=== PATIENT | male | born 1970 | race Two or more races ===

== ENCOUNTER 2024-05-20 22:56 | Inpatient (IN) | payer MEDICAID, SELFPAY ==
--- NOTE | 2024-05-20 22:58 | PD.EDAMS ---
Altered Mental Status RME/HPI General Chief Complaint: Altered Mental Status Stated Complaint: ALTERED Time Seen by Provider: 05/21/24 00:09 Limitations: no limitations RME / HPI RME / HPI narrative: Dr. Palacios's Main ED Evaluation: Unknown male BRYSON presents to the ED for a chief complaint of altered mental status. Per EMS, they were called after the patient passed out tonight at 2200 and has been drinking alcohol excessively. Full ROS is unobtainable due to the patient's AMS. Related Data Previous Rx's ?Medication ?Instructions ?Recorded metformin 500 mg tablet 500 mg PO BID #60 tabs 07/19/23 Allergies Allergy/AdvReac Type Severity Reaction Status Date / Time No Known Allergies Allergy Verified 05/21/24 00:46 Review of Systems Review of Systems ROS Unobtainable: unobtainable due to mental status ED Exam General Limitations: Present no limitations General appearance: Present alert and in no apparent distress Head Head exam: Present atraumatic Eye Eye exam: Present normal appearance, PERRL, EOMI and other (pupils are equal to 3-4mm) ENT ENT exam: Present normal oropharynx, mucous membranes moist and other (no facial trauma; is grinding his teeth; doesn't withdraw at the gag reflex) Neck Neck exam: Present normal inspection, full ROM and trachea midline Chest Chest inspection: Present normal inspection and symmetric chest wall rise Respiratory Respiratory exam: Present other (is snoring; diffuse rhonchi bilaterally); Absent stridor Cardiovascular Cardiovascular exam: Present regular rate, normal rhythm and normal heart sounds Abdominal Exam Abdominal exam: Present soft, distention and normal bowel sounds Extremities Exam Extremities exam: Present other (no signs of trauma); Absent pedal edema Neurological Exam Neurological exam: Present other (GCS is 3.) Skin Skin exam: Present warm, dry, intact and normal color Course Course Course Narrative: CXR is ordered for post intubation confirmation. 2327: Patient intubated. Quality Measures none Orders Category Date Time Status Admit to Inpatient Status Routine Admission 05/21/24 00:55 Active COVID-19 Screening Questionnaire NOW Care 05/21/24 01:02 Active Decision to Admit X1 Care 05/21/24 01:01 Active EKG (ED ONLY) *Do not use* NOW Care 05/20/24 23:09 Completed Reeder [Urinary Catheter] QS Care 05/20/24 23:03 Active Insert IV NOW Care 05/20/24 23:06 Active Intubation NOW Care 05/20/24 23:[address] cervical spine wo con Stat Exams 05/20/24 23:[address] head/brain wo con Stat Exams 05/20/24 23:47 Taken EKG (ED Only) Stat Exams 05/20/24 23:09 Ordered XR chest 1V post procedure Stat Exams 05/20/24 23:29 Completed ABG [Arterial Blood Gas] Stat Lab 05/20/24 23:10 Ordered Alcohol, Blood Medical Stat Lab 05/20/24 23:05 Completed Arterial Blood Gas Stat Lab 05/20/24 23:35 Completed Blood Culture (Lab) Stat Lab 05/20/24 23:06 Received CBC Stat Lab 05/20/24 23:05 Completed Comprehensive Metabolic Panel Stat Lab 05/20/24 23:05 Completed Drug Screen,Urine Stat Lab 05/20/24 23:09 Ordered Drug Screen,Urine Stat Lab 05/21/24 00:04 Ordered Lactate (Lactic Acid) Stat Lab 05/20/24 23:05 Results Procalcitonin Stat Lab 05/20/24 23:05 Completed Sputum Culture and Gram Stain Stat Lab 05/21/24 00:04 Ordered Urinalysis Stat Lab 05/21/24 00:41 Ordered Dextrose 5%-Water [D5w] 498 ml Med 05/20/24 23:45 Discontinued NALOXONE INJ (Syringe) [Narcan Inj (Syringe)] 2 mg IV 10 mls/hr Etomidate Inj [Amidate Inj] Med 05/20/24 23:04 Discontinued 20 mg IVP X1 ONE NALOXONE INJ (Syringe) [Narcan Inj (Syringe)] Med 05/20/24 22:58 Discontinued 2 mg .ROUTE .STK-MED ONE NALOXONE INJ (Syringe) [Narcan Inj (Syringe)] Med 05/20/24 23:10 Discontinued 2 mg IV X1 ONE Propofol 1,000 mg Ivpb [Diprivan Ivpb] Med 05/20/24 23:05 Discontinued 1,000 mg in 100 ml IV .STK-MED Propofol 1,000 mg Ivpb [Diprivan Ivpb] Med 05/20/24 23:07 Pending 1,000 mg in 100 ml IV 5 mcg/kg/min Propofol 1,000 mg Ivpb [Diprivan Ivpb] Med 05/20/24 23:30 Active 1,000 mg in 100 ml IV 5 mcg/kg/min Succinylcholine Inj [Anectine Inj] Med 05/20/24 23:05 Discontinued 100 mg IV X1 ONE Succinylcholine Inj [Anectine Inj] Med 05/20/24 23:35 Discontinued 100 mg IV X1 ONE levETIRAcetam INJ [Keppra Inj] Med 05/20/24 23:08 Discontinued 1,000 mg IVP X1 ONE O2 [Oxygen Delivery] PRN RT 05/20/24 23:33 Active Volume Ventilator Stat RT 05/20/24 Active Vital Signs Vital signs: Vital Signs Pulse Rate 103 H 05/20/24 23:16 Respiratory Rate 10 L 05/20/24 23:16 Blood Pressure 108/0 L 05/20/24 23:16 Pulse Oximetry (%) 95 05/20/24 23:16 Oxygen Delivery Method Ambu-Bag 05/20/24 23:16 Procedures -ED Intubation Time out performed: No sedative: Etomidate Mg Given: 20 paralytic: Succinylcholine Mg Given: 200 Laryngoscope: fiber optic video scope Assist Device Used: fiber optic device ET Tube Size: 7.5 ET Tube Uncuffed: No Tube Secured Depth (cm): 23 Tube Secured Location: teeth Tube Placement Confirmation: visualized tube passing through cords, equal breath sounds bilaterally, no breath sounds over epigastrium and confirmation by capnometry Patient Tolerated Procedure: well and no complications Altered Mental Status MDM Narrative MDM Narrative:: Differential diagnosis includes aspiration pneumonia, electrolyte abnormality, drug use, head trauma, metabolic encephalopathy, drug use, UTI, Patient presents with a GCS of 3. By history the patient was visually seen drinking significant amount of alcohol. No reported trauma. Patient satting well but has sonorous breathing's and? Doubt seizure activity however he is not protecting his airway and with low GCS, The patient is intubated. Chest x-ray is consistent with aspiration pneumonia and this is also visualized on CT scan. Patient data External records reviewed:: [facility] previous records (Unknown due to the patient being a Josh Hansen.) Clinical information provided by:: EMS Social determinants that could affect healthcare access:: none Patient has the following chronic illnesses:: DM How is presenting disease/condition affected by chronic disease/condition?: uneffected by Evaluation data The following diagnostics were reviewed and interpreted by me:: lab results, radiology exam(s) and EKG tracing(s) Lab and/or radiology exams considered but not ordered:: none Interpretation Summary: WBC count is elevated at 12.9, HnH is 17.6/49.7, Lactate is elevated at 4.7, Procalcitonin is normal, Glucose is elevated at 418, Anion Gap is normal, UDS is negative, Blood alcohol is elevated at 461.9, according to my interpretation. EKG done at 2314, NSR, rate of 87, normal intervals, normal axis, no ST elevations or depressions, QTc: 401, no STEMI, according to my interpretation. ----- [facility] Report Signed Patient: Cata WEINBERG Med. Record#: [id number] Birthdate: 06/12/1958 Age/Sex: 65 / M Location: [facility] Attending Dr: Ordering Physician: Yael Palacios MD Date of Service: 05/20/24 Procedure(s): XR chest 1V post procedure Accession Number(s): [id number] cc: Gordon Barnhart MD; Yael Palacios MD~ Examination: AP chest single view Technique one AP portable chest single view Exam date and time: May 20, 2024 11:39 PM Indications: Hypoxic respiratory failure postintubation today Findings: Tracheal tube tip 3.1 cm above viviana Reduced inspiratory effort Air distended stomach Orogastric tube in the stomach, the tip is below the level of the film Mild opacity in the left perihilar left upper lobe region, consider aspiration pneumonia Impression: Tracheal tube tip 3.1 cm above viviana Orogastric tube in the stomach Mild left upper lobe left perihilar opacity, consider aspiration pneumonia Dictated By: Gordon Barnhart MD Signed By: <Electronically signed by Gordon Barnhart MD in OV> 05/20/24 0514 ------ [facility] Preliminary Report Draft Patient: DERIC INMAN Med. Record#: [id number] Birthdate: 1970 Age/Sex: 53 / M Location: [facility] Attending Dr: Ordering Physician: Date of Service: Procedure(s): Accession Number(s): cc: ~ CT scan of the head without intravenous contrast (axial sections with sagittal and coronal reformats) May 21, 2024 0008 hours Clinical History: Mental status change. Comparison: None. Findings: There is no evidence of intracranial hemorrhage, mass effect or midline shift. There is mild volume loss. The calvarium is unremarkable. The mastoid air cells and the visualized paranasal sinuses are clear.Nasal and oral tubing is noted. Impression: No evidence of intracranial hemorrhage, mass effect or midline shift. Mild volume loss. Aspect score 10. Report Electronically Signed By: Nicholas Cochran 05/21/2024 12:41:18 AM [EST] --------- [facility] Preliminary Report Draft Patient: DERIC INMAN. Record#: [id number] Birthdate: 1970 Age/Sex: 53 / M Location: [facility] Attending Dr: Ordering Physician: Date of Service: Procedure(s): Accession Number(s): cc: ~ CT scan of the cervical spine without intravenous contrast (axial sections with sagittal and coronal reformats) May 21, 2024 0011 hours Clinical History: Mental status change. Comparison: None. Findings: There is no fracture or subluxation. Degenerative changes of the cervical spine. The prevertebral soft tissues are unremarkable. Endotracheal tube and esophageal tube noted. Partially imaged right lung consolidation. Impression: No evidence of fracture or subluxation. Partially imaged right lung consolidation. Consider further evaluation of the lungs to assess for pneumonia. Report Electronically Signed By: Nicholas Cochran 05/21/2024 12:42:10 AM [EST] Medications / Prescriptions Medications or Prescriptions considered but not ordered:: none Medication administrations:: Medication Administration History Propofol (Diprivan Ivpb) 1,000 mg in 100 mls @ 0 mls/hr IV .Q0M PRN; Protocol PRN Reason: PER PROTOCOL Stop: 06/19/24 23:06 Propofol (Diprivan Ivpb) 1,000 mg in 100 mls @ 2.177 mls/hr IV .Q24H PRN; Protocol PRN Reason: PER PROTOCOL Stop: 06/19/24 23:29 Last Titration: 05/20/24 23:50 Dose: 25 mcg/kg/min, 10.886 mls/hr Documented By: Titration: 05/20/24 23:45 Dose: 20 mcg/kg/min, 8.709 mls/hr Documented By: Titration: 05/20/24 23:40 Dose: 15 mcg/kg/min, 6.532 mls/hr Documented By: Titration: 05/20/24 23:35 Dose: 10 mcg/kg/min, 4.355 mls/hr Documented By: Admin: 05/20/24 23:30 Dose: 5 mcg/kg/min, 2.177 mls/hr Documented By: Co-signed By: MOIZ Discontinued Medications Etomidate (Etomidate Inj 2 Mg/Ml Vial 10 Ml) 20 mg IVP X1 ONE Stop: 05/20/24 23:05 Last Admin: 05/20/24 23:14 Dose: 20 mg Documented By: Propofol (Diprivan Ivpb) Confirm Administered Dose 1,000 mg in 100 mls @ ud IV .STK-MED ONE Stop: 05/20/24 23:06 Last Admin: 05/20/24 23:46 Dose: Not Given Documented By: Non-Admin Reason: Override Medication Naloxone HCl 2 mg/ Dextrose 500 mls @ 10 mls/hr IV .Q24H SAVI Stop: 06/19/24 23:44 Last Admin: 05/21/24 00:53 Dose: Not Given Documented By: Non-Admin Reason: Discontinued Levetiracetam (Levetiracetam Inj 100 Mg/Ml Vial 5ml) 1,000 mg IVP X1 ONE Stop: 05/20/24 23:09 Last Admin: 05/20/24 23:30 Dose: 1,000 mg Documented By: Naloxone HCl (Naloxone Inj 1 Mg/Ml Syringe 2 Ml) Confirm Administered Dose 2 mg .ROUTE .STK-MED ONE Stop: 05/20/24 22:59 Last Admin: 05/20/24 23:46 Dose: Not Given Documented By: Non-Admin Reason: Override Medication Admin: 05/20/24 23:10 Dose: 2 mg Documented By: Naloxone HCl (Naloxone Inj 1 Mg/Ml Syringe 2 Ml) 2 mg IV X1 ONE Stop: 05/20/24 23:11 Succinylcholine Chloride (Succinylcholine Inj 20 Mg/Ml Vial 10 Ml) 100 mg IV X1 ONE Stop: 05/20/24 23:06 Last Admin: 12/09/24 23:22 Dose: 100 mg Documented By: DIMPLE Succinylcholine Chloride (Succinylcholine Inj 20 Mg/Ml Vial 10 Ml) 100 mg IV X1 ONE Stop: 05/20/24 23:36 Last Admin: 05/20/24 23:15 Dose: 100 mg Documented By: DIMPLE see above Consultations Consultation(s) initiated? (list below): Yes Consultation #1 (Physician, Specialty, Details): Discussed case with [Dr. Dial] from Hospitalist service regarding admission. Discussed patients ED course, exam findings, labs, and radiology results. The Hospitalist [agrees] to accept the patient for admission. Diagnosis Differential diagnosis altered mental status: sepsis and other (overdose, alcohol intoxication, encephalopathy, other metabolic encephalopathy, trauma, aspiration pneumonia, other drug use, underlying psychiatric disorder, sepsis) Most likely diagnosis given after review of the tests above:: see below Admission Indicated Admission indicated?: indicated Admission Request Was there a request for admission?: Yes Admission Attestation Admission request attestation: Discussed case with [] from Hospitalist service regarding admission. Discussed patients ED course, exam findings, labs, and radiology results. The Hospitalist [agrees,declines] to accept the patient for admission. Disposition Plan Disposition Plan: Admit Critical Care Time Critical Care Time Critical Care Time: Yes Total Critical Care Time (min.): 50 Attestation: The high probability of sudden, clinically significant deterioration in the patient?s condition required the highest level of my preparedness to intervene urgently. The services I provided to this patient were to treat and/or prevent clinically significant deterioration. Services included the following: chart data review, reviewing nursing notes and/or old charts, documentation time, corporate health consultant collaboration regarding findings and treatment options, medication orders and management, direct patient care, vital sign assessments and ordering, interpreting and reviewing diagnostic studies and lab tests. Aggregate critical care time includes only time during which I was engaged in work directly related to the patient?s care, as described above, whether at bedside or elsewhere in the Emergency Department. It did not include time spent performing other reported procedures or the services of residents, students, nurses or physician assistants. Discharge Plan Plan Patient Disposition: Admit Acute Care w/in Hospital Patient condition on transfer: Stable Prescriptions/Referrals Prescriptions/Med Rec: No Action metformin 500 mg tablet 500 mg PO BID Qty: 60 0RF Problem List Clinical Impression: Altered mental status, Alcoholic intoxication, Acute hyperglycemia, Sepsis, Aspiration pneumonia Patient/Caregiver Discharge Instructions Print Language: [place] Stand Alone Forms: [facility] Award Info., Patient Portal Info Letter
[2024-05-20 23:00] VITALS: PULSE 77; RESP 8; O2SAT 96
[2024-05-20] MEDS: NALOXONE INJ 1 MG/ML SYRINGE 2 ML 2 MG IV (23:03)
[2024-05-20 23:07] VITALS: BMI 26.6
[2024-05-20] MEDS: NALOXONE INJ 1 MG/ML SYRINGE 2 ML 2 MG (23:10)
[2024-05-20] MEDS: ETOMIDATE INJ 2 MG/ML VIAL 10 ML 20 MG IVP (23:14)
[2024-05-20] MEDS: SUCCINYLCHOLINE INJ 20 MG/ML VIAL 10 ML 100 MG IV ×2 (23:15→23:22)
[2024-05-20 23:16] VITALS: BP 108/0; PULSE 103; RESP 10; O2SAT 95
[2024-05-20 23:21] VITALS: BP 174/119; PULSE 112; RESP 12; O2SAT 92
[2024-05-20 23:27] VITALS: BP 206/127; PULSE 100; RESP 5
--- NOTE | 2024-05-20 23:29 | XR_ITS ---
Examination: AP chest single view Technique one AP portable chest single view Exam date and time: May 20, 2024 11:39 PM Indications: Hypoxic respiratory failure postintubation today Findings: Tracheal tube tip 3.1 cm above viviana Reduced inspiratory effort Air distended stomach Orogastric tube in the stomach, the tip is below the level of the film Mild opacity in the left perihilar left upper lobe region, consider aspiration pneumonia Impression: Tracheal tube tip 3.1 cm above viviana Orogastric tube in the stomach Mild left upper lobe left perihilar opacity, consider aspiration pneumonia
[2024-05-20 23:30] VITALS: PULSE 112; RESP 32; O2SAT 98
[2024-05-20] MEDS: levETIRAcetam INJ 100 MG/ML VIAL 5ML 1000 MG IVP (23:30)
[2024-05-20] MEDS: PROPOFOL 1,000 MG IVPB 1,000 MG/100 ML VIAL 2.177 MG IV (23:30)
[2024-05-20 23:41] LABS: Basophils # (Auto) 0.1 Thou/mm3 (0.0-0.2); Basophils % (Auto) 1 % (0-2.5); Eosinophils # (Auto) 0.1 Thou/mm3 (0.0-0.5); Eosinophils % (Auto) 1 % (0-10); Hematocrit 49.7 % (41.0-53.0); Hemoglobin 17.6 g/dL (13.5-16.0); Immature Granulocytes % (Auto) 0 % (0-0); Immature Granulocytes Auto 0.03 Thou/mm3 (0.00-0.00); Lymphocytes # (Auto) 7.9 Thou/mm3 (1.0-4.8); Lymphocytes % (Auto) 61 % (10-50); Mean Corpuscular HGB Conc 35.4 g/dl (31.0-37.0); Mean Corpuscular Hemoglobin 31.2 pg (25.0-35.0); Mean Corpuscular Volume 88 fL (80-100); Monocytes % (Auto) 8 % (0-12); Neutrophils # (Auto) 3.7 Thou/mm3 (1.8-7.7); Neutrophils % (Auto) 29 % (37-80); Nucleated Red Blood Cell % 0 /100 WBC (0); Platelet Count 272 Thou/mm3 (140-440); RDW Standard Deviation 41.3 fL (35.1-43.9); Red Blood Count 5.64 Miln/mm3 (4.50-5.90); White Blood Count 12.9 Thou/mm3 (3.8-10.6)
[2024-05-20 23:42] LABS: Lactate (Lactic Acid) 4.7 mMol/L (0.4-2.0)
--- NOTE | 2024-05-20 23:47 | XR_ITS ---
Examination: CT cervical spine without contrast 2-D sagittal reconstructions 2-D coronal reconstructions 3-D reconstructions. Exam date and time:May 21, 2024 0011 hrs. Indications: Patient found down unconscious today one hour ago, with altered mental status CTDI:vol (mGy) 14.86 DLP: (mGycm) 394 Technique: Multiple 2 mm axial sections of the cervical spine have been obtained. The coronal and sagittal reconstructions have been obtained. 3-D reconstructions have been obtained. Low dose protocols were performed. One or more of the following dose reduction techniques were used; automated exposure control, adjustment of the mA and/or KV according to patient size, use of iterative reconstruction technique. Findings: Axial sections demonstrate intact base of the skull. C1 exhibit satisfactory relationship to the odontoid. No acute cervical vertebral body fracture seen. Alignment posterior spinous processes satisfactory. Impression: No acute cervical fracture. Right upper lobe lung opacity, consider aspiration pneumonia
--- NOTE | 2024-05-20 23:47 | XR_ITS ---
Examination: CT brain head without contrast. 2-D sagittal coronal reconstructions Date and time of exam:May 21, 2024 0008 hrs. Indications: Patient found down unconscious one hour ago, followed by altered mental status CTDI: vol (mGy):52 DLP: (mGycm):1078 Technique: Multiple CT axial sections of the brain have been obtained, 5 mm slice thickness. Contrast has not been administered. 2-D sagittal, coronal reconstructions have been obtained Low dose protocols were performed. One or more of the following dose reduction techniques were used; automated exposure control, adjustment of the mA and/or KV according to patient size, use of iterative reconstruction technique. Findings: No significant ventricular enlargement. Axial image 30 suspicious for acute infarct in the brainstem, pontine level, 8 mm Intra-axial or extra-axial hemorrhage density is not seen. No mass effect or midline shift Basal cisterns are not remarkable. Fourth ventricle is midline. Cranial vault intact. Impression: Negative for acute hemorrhage, mass effect or midline shift Suspicious for brainstem nonhemorrhagic infarct, recommend brain MRI follow-up
[2024-05-20 23:57] LABS: Amphetamine/Methamp Scrn,U Negative (Negative); Barbiturate Screen,Urine Negative (Negative); Benzodiazepines Screen,Urine Negative (Negative); Benzoylecgonine Screen, Ur Negative (Negative); Fentanyl Screen,Urine Negative (Negative); Opiate Screen,Urine Negative (Negative); THC Screen,Urine Negative (Negative)
[2024-05-21] VITALS (35 sets, daily range): BP systolic 88–143; BP diastolic 52–98; PULSE 20–112; RESP 10–93; TEMP 36.1–37.8; O2SAT 91–166; BMI 28.2
--- NOTE | 2024-05-21 | XR_ITS ---
Examination: MRI brain without intravenous contrast. Date and time of exam: May 21, 2024 at 1811 hrs. Indications: Altered mental status beginning today Technique: Multiple axial and sagittal images of the brain obtained. Siemens high-resolution 1.5 Valerie short bore scanners utilized. Sagittal sections, T1-weighted, TR 500, TE 14, are performed. Axial sections proton-density and T2-weighted have been obtained. Inversion recovery axial images, TR 9, 260, TE 111, TI 2500. Diffusion weighted images, axial sections, TR 4800, TE 128, B value 1000 Axial sections, ADC map, TR 4800, TE 128 Findings: Enlargement of the sella turcica is not present. The optic chiasm and infundibular are not remarkable. Prepontine and interpeduncular cisterns are not enlarged. There is no localized enlargement of the medulla or garth. Fourth ventricle and cerebellar tonsils appear normal in position. No subacute area of hemorrhage density is seen. Mass in the cerebellopontine angle region is not evident. Globes symmetrical. Orbital musculature including medial lateral rectus muscles do not exhibit abnormality. Diffusion-weighted images demonstrate no focus of restricted diffusion. Increased white matter signal multiple punctate foci increased signal throughout the cerebral white matter Mass effect upon the ventricular system is not identified. Impression: Negative for acute hemorrhage mass effect or midline shift No acute infarct Multiple punctate foci increased signal throughout the cerebral white matter, demyelinating disease pattern
[2024-05-21 00:02] LABS: Base Excess -5 (-3-3); HCO3 22 mEq/L (20-26); O2 Saturation 99 % (91-98); PCO2 47 mmHg (32.0-48.0); PO2 405 mmHg (83-108); pH, Arterial 7.28 (7.35-7.45)
[2024-05-21 00:03] LABS: Allen Test Performed/OK; Inspired Oxygen, FIO2 100 %; Puncture Site Right Radial
[2024-05-21 00:09] LABS: Anion Gap 16 (7-16); BUN/Creatinine Ratio 9 Ratio (12-20); Blood Urea Nitrogen 11 mg/dL (9-23); Carbon Dioxide 22.8 mMol/L (20.0-31.0); Chloride 96 mMol/L (98-107); Creatinine (Component) 1.2 mg/dL (0.6-1.3); Estimated Creatinine Clearance 61.9 mL/min (>60); Potassium 4.1 mMol/L (3.4-5.1); Sodium 135 mMol/L (136-145); eGFR > 60 See Note
[2024-05-21 00:10] LABS: Alanine Aminotransferase 74 U/L (10-49); Albumin/Globulin Ratio 1.5 (1.2-2.2); Alkaline Phosphatase 151 U/L (46-116); Aspartate Amino Transferase 26 U/L (0-34); Bilirubin,Total 0.2 mg/dL (0.3-1.2); Calcium 9.4 mg/dL (8.3-10.6); Calcium (Corrected) 9.4 mg/dL (8.5-10.1); Globulin 2.7 gm/dL (2.3-3.5); Osmolality,Calculated 287 (275-295); Total Protein 6.7 gm/dL (5.7-8.2)
[2024-05-21 00:14] LABS: Alcohol, Blood Medical 461.9 mg/dL (0-10.0); Glucose 418 mg/dL (74-106)
--- NOTE | 2024-05-21 00:22 | PC.RT ---
pt taken to ct without complications
--- NOTE | 2024-05-21 00:26 | PC.RT ---
fio2 titrated to 45% per abg results
--- NOTE | 2024-05-21 00:26 | PC.RT ---
rate increased to 16 per abg results.
--- NOTE | 2024-05-21 00:30 | PC.NURSE ---
Patient barbra from [facility] where he was reported to be drinking. He then fell down and became unconscious. Patient GCS 3 upon arrival and being bagged by EMS who also reported a blood glucose of 444. He arrived with 14G to R ac by EMS. Patient completely unresponsive to pain and non verbal. 2mg narcan given with no improvement. 1 gm keppra ordered and given. BG rechecked in house at 434. 20 mg etomidate given, 100 mg succ given, additional 100 mg succ given. Intubated at 2327 verified with auscultation, color change, and xray. Propofol ordered and hung for sedation.
--- NOTE | 2024-05-21 00:41 | PRELIM_ITS ---
CT scan of the head without intravenous contrast (axial sections with sagittal and coronal reformats) May 21, 2024 0008 hoursClinical History: Mental status change. Comparison: None.Findings:There is no evidence of intracranial hemorrhage, mass effect or midline shift. There is mild volume loss. T he calvarium is unremarkable. The mastoid air cells and the visualized paranasal sinuses are clear.Na kely and oral tubing is noted. Impression:No evidence of intracranial hemorrhage, mass effect or midli ne shift. Mild volume loss.Aspect score 10. Report Electronically Signed By: Nicholas Cochran 024 12:41:18 AM [EST]
--- NOTE | 2024-05-21 00:42 | PRELIM_ITS ---
CT scan of the cervical spine without intravenous contrast (axial sections with sagittal and coronal reformats) May 21, 2024 0011 hours Clinical History: Mental status change. Comparison: None.Find ings:There is no fracture or subluxation. Degenerative changes of the cervical spine. The prevertebra l soft tissues are unremarkable.Endotracheal tube and esophageal tube noted.Partially imaged right teresa ng consolidation.Impression:No evidence of fracture or subluxation.Partially imaged right lung consol idation. Consider further evaluation of the lungs to assess for pneumonia. Report Electronically Sign ed By: Nicholas Cochran 05/21/2024 12:42:10 AM [EST]
--- NOTE | 2024-05-21 01:32 | ESHP_ITS ---
Documentation for date of: 05/21/24 [facility] History of Present Illness History of present illness: 53-year-old man with past medical history of diabetes mellitus type 2 who came to the ED brought by ambulance due to altered mental status. History was taken per chart review due to patient is intubated and sedated. Patient apparently passed out on around 10 PM after binge drinking alcohol. At the arrival at the ED patient had a GCS of 3. ED course: Initial vitals: BP 174/100 HR 103 RR 10 afebrile, saturating 95% on Ambu bag FiO2 45% Pertinent labs: Leukocytosis 12.9 hemoglobin 17.6, ABG showed NAGMA pH 7.28 pCO2 47 pO2 405 HCO3 22, hyperglycemia 418, lactic acidosis 4.7, ALT 74, alk phos 151, Beta-Hydroxybutarate negative, Ethyl Alcohol 461.9, U tox negative Imaging: CT head was negative for hemorrhage, mass or midline shift, cervical spine CT was negative for fractures and showed a partially imaged right lung consolidation. Chest x-ray showed Mild left upper lobe left perihilar opacity with possible aspiration pneumonia. At the ED the patient received Keppra 1 g IV x 1, Narcan IV x 2 and patient remains obtunded, patient was intubated for airway protection and was admitted to the ICU for further treatment and management of acute encephalopathy secondary to alcohol intoxication. Past medical history: Diabetes mellitus type 2 Past surgical history: Unknown Family history: Unknown Social history: Unknown Travel history: Unknown Allergies:Unknown Review of Systems Review of Systems ROS Unobtainable: unobtainable due to mental status Exam Vital Signs Temp Pulse Resp BP Pulse Ox O2 Del Method FiO2 97.0 F 97 17 117/75 95 Room Air 45 05/21/24 00:07 05/21/24 01:15 05/21/24 01:15 05/21/24 01:15 05/21/24 01:15 05/21/24 00:07 05/21/24 00:23 Narrative Exam General: Sedated and mechanically ventilated. HEENT: NC/AT, PERRL, EOMI, moist mucous membranes, edentulus. Neck: Supple, No masses, No adenopathy, carotid pulse 2+ bilaterally without bruits, No JVD. Chest: Symmetrical, atraumatic, and with equal expansion , Nontender on palpation no deformity and no crepitus. CVS: S1 and S2 present, tachycardic no murmurs, rubs or gallops perceived during auscultation. Lungs: Breathing sounds consistent with ventilator, no wheezing, rhonchi or rales perceived during auscultation, No intercostal or subcostal retraction. Abdomen : Distended, no guarding, no rebound, +BS. Extremities: No edema, warm well perfused, cap refill less than 2, +2 dp equal bilaterally, able to move all 4 extremities spontaneously. Skin: No lesions, no erythema or jaundice noted. Neuro: Difficult to assess the patient is sedated and mechanically ventilated. Psych: Difficult to assess the patient is sedated and mechanically ventilated. Results: Labs 05/20/24 23:05 05/21/24 03:11 Labs: Short CBC 05/20/24 Range/Units 23:05 WBC 12.9 H (3.8-10.6) Thou/mm3 Hgb 17.6 H* (13.5-16.0) g/dL Hct 49.7 (41.0-53.0) % Plt Count 272 (140-440) Thou/mm3 BMP 05/20/24 23:05 Sodium 135 L Potassium 4.1 Chloride 96 L Carbon Dioxide 22.8 BUN 11 Creatinine 1.2 Glucose 418 H* Calcium 9.4 Liver Function 05/20/24 Range/Units 23:05 Total Bilirubin 0.2 L (0.3-1.2) mg/dL AST 26 (0-34) U/L ALT 74 H (10-49) U/L Alkaline Phosphatase 151 H (46-116) U/L Albumin 4.0 (3.5-5.0) gm/dL ABG Interpretation ABG results: 05/20/24 23:35 ABG pH 7.28 L ABG pCO2 47 ABG pO2 405 H ABG HCO3 22 ABG O2 Saturation 99 H ABG Base Excess -5 L Quality Measures Quality Measures none Medications Home Medications and Allergies Allergies Allergy/AdvReac Type Severity Reaction Status Date / Time No Known Allergies Allergy Verified 05/21/24 00:46 Visit Medications Folic Acid (Folic Acid Inj 1 Mg/0.2 Ml) 1 mg IVP QDAY SAVI Stop: 05/24/24 08:59 Glucagon (Glucagon Inj 1 Mg Vial) 1 mg IM Q15MIN PRN PRN Reason: BG <70, and no IV access Propofol (Diprivan Ivpb) 1,000 mg in 100 mls @ 0 mls/hr IV .Q0M PRN; Protocol PRN Reason: PER PROTOCOL Stop: 06/19/24 23:06 Propofol (Diprivan Ivpb) 1,000 mg in 100 mls @ 2.177 mls/hr IV .Q24H PRN; Protocol PRN Reason: PER PROTOCOL Stop: 06/19/24 23:29 Last Titration: 05/21/24 01:30 Dose: 35 mcg/kg/min, 15.241 mls/hr Piperacillin Sod/Tazobactam (Sod 3.375 gm/ Sodium Chloride) 50 mls @ 100 mls/hr IV X1 ONE Stop: 05/21/24 01:38 Lactated Ringer's (Lactated Ringers) 1,000 mls @ 999 mls/hr IV .Q1H1M ONE Stop: 05/21/24 02:25 Piperacillin/Tazobactam/Dextrose (Zosyn) 3.375 gm in 50 mls @ 100 mls/hr IV Q8HR [facility], [facility]1983 Stop: 05/28/24 01:29 Insulin Human Lispro (Insulin Lispro (Admelog) 1 Unit/0.01 Ml Unit) 0 unit SC Q6HR [facility], [facility]1983; Protocol Stop: 06/20/24 01:29 Ondansetron HCl (Ondansetron Inj 2 Mg/Ml Inj 2 Ml) 4 mg IV Q6HR PRN PRN Reason: NAUSEA OR VOMITING Stop: 06/20/24 01:16 Pantoprazole Sodium (Pantoprazole Inj 40 Mg Vial) 40 mg IVP QDAY [facility], [facility]1983 Stop: 06/20/24 08:59 Thiamine HCl (Thiamine Inj 100 Mg/Ml Vial 2 Ml) 100 mg IVP QDAY [facility], [facility]1983 Stop: 05/24/24 08:59 Discontinued Medications Etomidate (Etomidate Inj 2 Mg/Ml Vial 10 Ml) 20 mg IVP X1 ONE Stop: 05/20/24 23:05 Last Admin: 05/20/24 23:14 Dose: 20 mg Naloxone HCl 2 mg/ Dextrose 500 mls @ 10 mls/hr IV .Q24H [facility]1983 Stop: 06/19/24 23:44 Last Admin: 05/21/24 00:53 Dose: Not Given Levetiracetam (Levetiracetam Inj 100 Mg/Ml Vial 5ml) 1,000 mg IVP X1 ONE Stop: 05/20/24 23:09 Last Admin: 05/20/24 23:30 Dose: 1,000 mg Naloxone HCl (Naloxone Inj 1 Mg/Ml Syringe 2 Ml) 2 mg IV X1 ONE Stop: 05/20/24 23:11 Last Admin: 05/20/24 23:03 Dose: 2 mg Succinylcholine Chloride (Succinylcholine Inj 20 Mg/Ml Vial 10 Ml) 100 mg IV X1 ONE Stop: 05/20/24 23:06 Last Admin: 05/20/24 23:22 Dose: 100 mg Succinylcholine Chloride (Succinylcholine Inj 20 Mg/Ml Vial 10 Ml) 100 mg IV X1 ONE Stop: 05/20/24 23:36 Last Admin: 05/20/24 23:15 Dose: 100 mg Assessment & Plan Plan 53-year-old man with past medical history of diabetes mellitus type 2 who came to the ED brought by ambulance due to altered mental status. History was taken per chart review due to patient is intubated and sedated. Patient apparently passed out on around 10 PM after binge drinking alcohol. At the arrival at the ED patient had a GCS of 3. ED course: Initial vitals: BP 174/100 HR 103 RR 10 afebrile, saturating 95% on Ambu bag FiO2 45% Pertinent labs: Leukocytosis 12.9 hemoglobin 17.6, ABG showed NAGMA pH 7.28 pCO2 47 pO2 405 HCO3 22, hyperglycemia 418, lactic acidemia 4.7, ALT 74, alk phos 151, Ethyl Alcohol 461.9, U tox negative, Imaging: CT head was negative for hemorrhage, mass or midline shift, cervical spine CT was negative for fractures and showed a partially imaged right lung consolidation . Chest x-ray showed Mild left upper lobe left perihilar opacity with possible aspiration pneumonia. At the ED the patient received Keppra 1 g IV x 1, Narcan IV x 2 and patient remains obtunded, patient was intubated for airway protection and was admitted to the ICU for further treatment and management of acute encephalopathy secondary to alcohol intoxication. GEAR SHAPER: #Acute encephalopathy Secondary to alcohol intoxication Patient was brought to the ED by ambulance due to GCS of 3 after an episode of heavy alcohol drinking and intubated for airway protection. Ethyl Alcohol 461.9, U tox negative, CT head was negative for hemorrhage, mass or midline shift. CT cervical spine was negative for fractures Sedation: Propofol and fentanyl gtt. ? IV thiamine 100 mg daily ? IV folic acid 1 mg daily CVS: Stable PULM: #Aspiration pneumonia? Secondary to acute encephalopathy in the setting of alcohol intoxication Leukocytosis 12.9, cervical spine CT was negative for fractures and showed a partially imaged right lung consolidation Chest x-ray showed Mild left upper lobe left perihilar opacity with possible aspiration pneumonia. Patient was intubated for airway protection Vent settings: AC/VC RR 16 TV 400 PEEP 5 FiO2 45 ? Started IV Zosyn every 8 hours ? Follow-up CBC ? Follow-up ABGs ? Follow-up daily x-ray GI: Stable RENAL: #Non-anion gap metabolic acidosis #Lactic acidosis Secondary to alcohol intoxication vs metformin induced? ABG showed non anion gap metabolic acidosis with a pH of 7.28 pCO2 47 pO2 105 HCO3 22, ABG 16 ? IV fluids 2 L LR x 1 ? Trend lactic acid every 3 hours ? Follow-up follow-up CMP ? Follow-up ABG in the morning ENDO: #Hyperglycemia Secondary to alcohol intoxication vs medication noncompliance? Less likely DKA the patient. Patient does not have anion gap. Beta-hydroxybutyrate was negative ? Hold home medications metformin ? IV regular insulin 10 units IV x 1 ? Insulin sliding scale ? Hypoglycemia protocol in place HEME/ONC: #Polycythemia secondary to dehydration Hemoglobin 17.6 ? IV fluids 2 L LR ? Follow-up CBC ID: #Leukocytosis Possibly secondary to aspiration pneumonia CT was negative for fractures and showed a partially imaged right lung consolidation. Chest x-ray showed Mild left upper lobe left perihilar opacity with possible aspiration pneumonia ? Started IV Zosyn every 8 hours ? Follow-up CBC MSK: Stable SKIN: Stable FEN: N.p.o. Lines: Peripheral lines DVT prophylaxis: SCDs GI prophylaxis: Protonix CODE STATUS: Full code Patient discussed with my attending Dr Jayro Dolan MD PGY-3 Disclaimer: Despite multiple revisions, due to the dictation software being used, the document bellow may not be free of grammatical errors including phonetic/typographic errors. However, this does not deter from our commitment to providing health care in the patient's best interest in mind. Attending Provider Attestation/Addendum Pt was evaluated and plan formulated together with the housestaff team. I have reviewed the residents note above and agree with most of its content. Please refer to the residents note for additional details. Per the chart, the patient passed out tonight at 2200 and has a history of excessive alcohol consumption. He was subsequently intubated for airway protection. Initial lab results showed: WBC 12.9, hemoglobin 17.6, and lactic acid 5.8. A CT head was negative for intracranial hemorrhage, mass effect, or midline shift. CT cervical spine revealed right lung consolidation. Plan: * Continue ventilator management. * Provide supportive care. * Plan for extubation in the director ambulatory. * Initiate antibiotics to cover possible aspiration pneumonia.
[2024-05-21] MEDS: INSULIN HUM REGULAR 1 UNIT/0.01 ML (PER UNIT) 10 UNIT IV (01:53)
[2024-05-21] MEDS: fentaNYL 2,500 MCG/250 ML BAG 2,500 MCG/250 ML BAG IV (02:00)
[2024-05-21 02:36] LABS: Reflex Lactate? Y
[2024-05-21] MEDS: PIPER/TAZO INJ 3.375 GM in SODIUM CHLORIDE 0.9% (P) 50 ML IV (02:41)
[2024-05-21] MEDS: RINGERS LACTATED 1000 ML 1,000 ML 999 ML IV ×4 (02:55→13:43)
[2024-05-21 03:22] LABS: Lactic Acid, 3 HR 5.8 mMol/L (0.4-2.0)
[2024-05-21 03:34] LABS: Beta Hydroxybutyrate 0.2 mmol/L (<0.6)
[2024-05-21] MEDS: RINGERS LACTATED 1000 ML 1,000 ML 150 ML IV (03:43)
[2024-05-21 03:49] LABS: Alanine Aminotransferase 65 U/L (10-49); Anion Gap 15 (7-16); Aspartate Amino Transferase 31 U/L (0-34); BUN/Creatinine Ratio 10 Ratio (12-20); Bilirubin,Total 0.2 mg/dL (0.3-1.2); Blood Urea Nitrogen 11 mg/dL (9-23); Calcium 8.1 mg/dL (8.3-10.6); Carbon Dioxide 22.4 mMol/L (20.0-31.0); Chloride 98 mMol/L (98-107); Creatinine (Component) 1.1 mg/dL (0.6-1.3); Estimated Creatinine Clearance 67.6 mL/min (>60); Glucose 341 mg/dL (74-106); Osmolality,Calculated 282 (275-295); Phosphorous 3.3 mg/dL (2.4-5.1); Potassium 3.6 mMol/L (3.4-5.1); Sodium 135 mMol/L (136-145); Total Protein 5.1 gm/dL (5.7-8.2); eGFR > 60 See Note
[2024-05-21 03:50] LABS: Albumin, Serum 3.1 gm/dL (3.5-5.0); Albumin/Globulin Ratio 1.6 (1.2-2.2); Alkaline Phosphatase 108 U/L (46-116); Calcium (Corrected) 8.8 mg/dL (8.5-10.1)
[2024-05-21 04:35] LABS: Base Excess -1 (-3-3); HCO3 25 mEq/L (20-26); Inspired Oxygen, FIO2 45 %; O2 Saturation 98 % (91-98); PCO2 46 mmHg (32.0-48.0); PO2 166 mmHg (83-108); pH, Arterial 7.35 (7.35-7.45)
[2024-05-21 04:41] LABS: Allen Test Performed/OK; Puncture Site Right Radial
[2024-05-21] MEDS: PROPOFOL 1,000 MG IVPB 1,000 MG/100 ML VIAL 15.241 MG IV (05:59)
--- NOTE | 2024-05-21 06:00 | XR_ITS ---
Examination: AP chest single view Technique : AP portable semiupright chest single view Exam date and time: May 21, 2024 0531 hrs. Indications: Hypoxic respiratory failure today post intubation post orogastric tube placement Findings: Mild prominence left ventricle Mild increased markings left perihilar region with obscuration of detail left hemidiaphragm Endotracheal tube tip 2.7 cm above viviana. The orogastric tube is in the stomach, the tip is below the level of the film Impression: Suspicious for early left perihilar left basilar pneumonia Tracheal tube tip 2.7 cm above viviana
[2024-05-21] MEDS: INSULIN LISPRO (AdmeLOG) 1 UNIT/0.01 ML UNIT SC ×4 (06:07→20:19)
[2024-05-21 06:19] LABS: Lactate (Lactic Acid) 5.3 mMol/L (0.4-2.0)
[2024-05-21] MEDS: FOLIC ACID INJ 1 MG/0.2 ML IVP (08:00)
[2024-05-21] MEDS: PANTOPRAZOLE INJ 40 MG VIAL IVP (08:00)
[2024-05-21] MEDS: THIAMINE INJ 100 MG/ML VIAL 2 ML IVP (08:00)
[2024-05-21 08:40] LABS: Misc Send Out* See Sep Rpt
[2024-05-21 09:11] LABS: Reflex Lactate? Y
[2024-05-21] MEDS: chlordiazePOXIDE HCl 25 MG CAPSULE PO ×3 (11:37→23:15)
[2024-05-21 12:23] LABS: Lactate (Lactic Acid) 4.1 mMol/L (0.4-2.0)
[2024-05-21 13:05] LABS: Reflex Lactate? Y
--- NOTE | 2024-05-21 13:35 | PD.INTPROG ---
Documentation for date of: 05/21/24 Subjective Subjective Interval history: This is a 53-year-old male who was brought to the ER yesterday for altered mentation and severe intoxication. Upon arrival to the ER he was found to be obtunded with a GCS of 3 therefore decision was made to intubate him for airway protection. He was intubated and brought up to the ICU. For sedation he was continued on propofol and fentanyl. This morning when his sedation was held he woke up and was able to follow commands. Overnight he has been afebrile with a good urinary output. Critical Care Note Critical care time (min.): 43 Exam Vital Signs Temp Pulse Resp BP Pulse Ox O2 Del Method O2 Flow Rate 100.1 F 101 H 17 113/72 97 Nasal Cannula 2 05/21/24 12:00 05/21/24 12:00 05/21/24 12:00 05/21/24 12:00 05/21/24 12:00 05/21/24 10:00 05/21/24 10:00 FiO2 45 05/21/24 09:27 Narrative Exam General-no acute distress, awake and able to follow commands, normal body habitus HEENT-normocephalic, atraumatic, sclera icteric, oral mucosa is hydrated, ET tube and OG tube in place Chest-lungs clear to auscultation bilaterally, heart regular rhythmic, no bruits murmurs auscultated times exam Abdomen-soft, nontender, bowel sounds present, no rebound or guarding Extremities-no edema lower extremities, pulses palpable, no clubbing or cyanosis, no mottling, moves all 4 Vent PSV Drips Fentanyl Propofol Physical Exam Completion Physical Exam Complete?: Yes Objective - Content Management Consultant Labs 05/20/24 23:05 05/21/24 03:11 Labs: Laboratory Results - last 24 hr 05/20/24 05/20/24 05/20/24 00:04 23:05 23:35 WBC 12.9 H RBC 5.64 Hgb 17.6 H* Hct 49.7 MCV 88 MCH 31.2 MCHC 35.4 RDW Std Deviation 41.3 Plt Count 272 Neut % (Auto) 29 L Lymph % (Auto) 61 H Major % (Auto) 8 Eos % (Auto) 1 Baso % (Auto) 1 Neut # (Auto) 3.7 Lymph # (Auto) 7.9 H Major # (Auto) 1.0 H Eos # (Auto) 0.1 Baso # (Auto) 0.1 Immature Gran # (Auto) 0.03 H Absolute Nucleated RBC 0.00 Immature Gran % 0 Nucleated RBC % 0 Puncture Site Right Radial ABG pH 7.28 L ABG pCO2 47 ABG pO2 405 H ABG HCO3 22 ABG O2 Saturation 99 H ABG Base Excess -5 L FiO2 100 Sodium 135 L Potassium 4.1 Chloride 96 L Carbon Dioxide 22.8 Anion Gap 16 BUN 11 Creatinine 1.2 Estim Creat Clear Calc 61.9 eGFR > 60 BUN/Creatinine Ratio 9 L Glucose 418 H* Estimated Ave Glu mg/dL Hemoglobin A1c Calculated Osmolality 287 Lactic Acid 4.7 H* Calcium 9.4 Corrected Calcium 9.4 Phosphorus Magnesium Total Bilirubin 0.2 L AST 26 ALT 74 H Alkaline Phosphatase 151 H Total Protein 6.7 Albumin 4.0 Globulin 2.7 Albumin/Globulin Ratio 1.5 Beta-Hydroxybutyrate/Acetoacetate Procalcitonin 0.10 Urine Opiates Screen Negative Urine Fentanyl Screen Negative Ur Barbiturates Screen Negative U Amphetamin/Meth Scrn Negative U Benzodiazepines Scrn Negative U Cocaine Metab Screen Negative U Marijuana (THC) Screen Negative Ethyl Alcohol 461.9 H* 05/21/24 05/21/24 05/21/24 03:11 04:26 05:49 WBC RBC Hgb Hct MCV MCH MCHC RDW Std Deviation Plt Count Neut % (Auto) Lymph % (Auto) Major % (Auto) Eos % (Auto) Baso % (Auto) Neut # (Auto) Lymph # (Auto) Major # (Auto) Eos # (Auto) Baso # (Auto) Immature Gran # (Auto) Absolute Nucleated RBC Immature Gran % Nucleated RBC % Puncture Site Right Radial ABG pH 7.35 ABG pCO2 46 ABG pO2 166 H D ABG HCO3 25 ABG O2 Saturation 98 ABG Base Excess -1 FiO2 45 Sodium 135 L Potassium 3.6 D Chloride 98 Carbon Dioxide 22.4 Anion Gap 15 BUN 11 Creatinine 1.1 Estim Creat Clear Calc 67.6 eGFR > 60 BUN/Creatinine Ratio 10 L Glucose [address] Glu mg/dL Cancelled Hemoglobin A1c Cancelled Calculated Osmolality 282 Lactic Acid 5.8 H* 5.3 H* Calcium 8.1 L Corrected Calcium 8.8 Phosphorus 3.3 Magnesium 2.0 Total Bilirubin 0.2 L AST 31 ALT 65 H Alkaline Phosphatase 108 D Total Protein 5.1 L Albumin 3.1 L D Globulin 2.0 L Albumin/Globulin Ratio 1.6 Beta-Hydroxybutyrate/Acetoacetate 0.2 Procalcitonin Urine Opiates Screen Urine Fentanyl Screen Ur Barbiturates Screen U Amphetamin/Meth Scrn U Benzodiazepines Scrn U Cocaine Metab Screen U Marijuana (THC) Screen Ethyl Alcohol 05/21/24 05/21/24 09:35 11:56 WBC RBC Hgb Hct MCV MCH MCHC RDW Std Deviation Plt Count Neut % (Auto) Lymph % (Auto) Major % (Auto) Eos % (Auto) Baso % (Auto) Neut # (Auto) Lymph # (Auto) Major # (Auto) Eos # (Auto) Baso # (Auto) Immature Gran # (Auto) Absolute Nucleated RBC Immature Gran % Nucleated RBC % Puncture Site ABG pH ABG pCO2 ABG pO2 ABG HCO3 ABG O2 Saturation ABG Base Excess FiO2 Sodium Potassium Chloride Carbon Dioxide Anion Gap BUN Creatinine Estim Creat Clear Calc eGFR BUN/Creatinine Ratio Glucose Estimated Ave Glu mg/dL Hemoglobin A1c Calculated Osmolality Lactic Acid 4.0 H 4.1 H* Calcium Corrected Calcium Phosphorus Magnesium Total Bilirubin AST ALT Alkaline Phosphatase Total Protein Albumin Globulin Albumin/Globulin Ratio Beta-Hydroxybutyrate/Acetoacetate Procalcitonin Urine Opiates Screen Urine Fentanyl Screen Ur Barbiturates Screen U Amphetamin/Meth Scrn U Benzodiazepines Scrn U Cocaine Metab Screen U Marijuana (THC) Screen Ethyl Alcohol Assessment & Plan Additional Assessment Additional Assessment: In summary this is a 53-year-old male admitted to the ICU for altered mental status and respiratory failure a/p [employer] Alcohol abuse- started on CIWA protocol - received thiamine/folate/MVI ? CVA-head CT obtained in the ER upon arrival was questionable for acute brainstem infarct -MRI of the brain was ordered -Patient started on aspirin and a statin -If the MRI does confirm a CVA will need additional stroke workup including an echocardiogram and carotid Dopplers CV stable Resp Acute hypoxic respiratory failure- intubated for airway protection. This morning placed on PSV and did well. Weaning parameters obtained. He passed was extubated to nasal cannula Aspiration pneumonia-on Zosyn if cultures are negative can de-escalate to ceftriaxone Renal Lactic acidosis-has received 3-1/2 L of IV fluids, no signs of decreased peripheral perfusion, trending downward, will follow GI swallow eval and if passes can start PO diet Endo stable Heme Leukocytosis-reactive versus secondary to aspiration DVT proph- lovenox ID Aspiration PNA-on antibiotics Case discussed with ICU team Labs, imaging and records reviewed ~43ccmin required for eval, exam, review, intervention, discussion and formulation of plan of care for this critically ill patient with respiratory failure currently intubated and on mechanical ventilation at high risk for further and ongoing decompensation. Provider Notation Provider Notation: Although this document has been carefully reviewed, there may still be some phonetic and other typographical errors. These errors are purely grammatical due to imperfections in the software program and should not be construed in any way to compromise the substance of the patient's medical care during this visit. Thank you for the opportunity and privilege in assisting you with this patient's care and management.
[2024-05-21 14:22] LABS: Lactate (Lactic Acid) 3.3 mMol/L (0.4-2.0)
[2024-05-21] MEDS: LORazepam 0.5 MG TABLET 1 MG PO (14:47)
[2024-05-21] MEDS: PIPER/TAZO 3.375 GM 3.375 GM/50 ML BAG IV ×2 (14:48→21:16)
--- NOTE | 2024-05-21 14:52 | EVENTNT_ITS ---
<Statement entered by David Lew MD - 05/27/24 16:14> I reviewed above note and agree with findings and plans. I have also personally examined the patient with medicine team and went over assessment and plan with medical team including fashion buying internship and resident physician. Documentation for date of: 05/21/24 Event Note Event Note: 53 y/o M with PMHx of type II diabetes mellitus came to the ED brought by ambulance due to altered mental status. Patient apperantly drank tequila for first time and became altered and passed out. Patient had GCS of 3 and was intubated and placed on mechanical ventilation due to concern for airway protection. Patient was weaned off sedation and was able to follow commands and successfully extubated. Patient was downgraded to the floors. Hospitalist team aware and will resume care 05/22/2024. Case discussed with my attending Dr. Louann Wong MD PGY-1
[2024-05-21 15:04] LABS: Reflex Lactate? Y
[2024-05-21 15:35] LABS: Lactic Acid, 3 HR 3.7 mMol/L (0.4-2.0)
[2024-05-21 17:20] LABS: Collection Type, Urine Catheter
[2024-05-21 17:38] LABS: Reflex Lactate? Y
[2024-05-21] MEDS: LORazepam 0.5 MG TABLET PO (17:48)
[2024-05-21 18:05] LABS: Bilirubin,Urine Negative (Negative); Blood,Urine 2+ (Negative); Clarity,Urine Clear (Clear/Hazy); Color,Urine Colorless (Lt Yel-Yel); Glucose, Urine 4+ (Negative); Ketones,Urine 2+ (Negative); Leukocyte Esterase,Urine Negative (Negative); Nitrite,Urine Negative (Negative); PH,Urine 5.5 (5.0-7.0); Protein,Urine Negative (Neg - Trace); RBC,Urine 84 /hpf (0-3); Specific Gravity,Urine 1.025 (1.001-1.035); Squamous Epithelial Cell,Urine < 1 /hpf (0-5); Urobilinogen,Urine Negative mg/dL (0.0-1.0); WBC,Urine 4 /hpf (0-5)
[2024-05-21] MEDS: ATORVASTATIN CALCIUM 20 MG TABLET 80 MG PO (20:24)
[2024-05-21 21:03] LABS: Lactic Acid, 3 HR 1.4 mMol/L (0.4-2.0)
[2024-05-22] VITALS (9 sets, daily range): BP systolic 122–137; BP diastolic 82–89; PULSE 22–93; RESP 16–96; TEMP 36.4–37.2; O2SAT 92–95; BMI 28.2
[2024-05-22] MEDS: PIPER/TAZO 3.375 GM 3.375 GM/50 ML BAG IV ×3 (05:15→21:02)
[2024-05-22] MEDS: chlordiazePOXIDE HCl 25 MG CAPSULE PO (05:15)
[2024-05-22 05:48] LABS: Basophils % (Auto) 0 % (0-2.5); Eosinophils # (Auto) 0.1 Thou/mm3 (0.0-0.5); Eosinophils % (Auto) 1 % (0-10); Hematocrit 41.2 % (41.0-53.0); Hemoglobin 14.5 g/dL (13.5-16.0); Immature Granulocytes % (Auto) 0 % (0-0); Immature Granulocytes Auto 0.04 Thou/mm3 (0.00-0.00); Lymphocytes # (Auto) 2.5 Thou/mm3 (1.0-4.8); Lymphocytes % (Auto) 25 % (10-50); Mean Corpuscular HGB Conc 35.2 g/dl (31.0-37.0); Mean Corpuscular Hemoglobin 31.6 pg (25.0-35.0); Mean Corpuscular Volume 90 fL (80-100); Monocytes # (Auto) 1.1 Thou/mm3 (0.0-0.8); Monocytes % (Auto) 11 % (0-12); Neutrophils # (Auto) 6.3 Thou/mm3 (1.8-7.7); Neutrophils % (Auto) 62 % (37-80); Nucleated Red Blood Cell % 0 /100 WBC (0); Platelet Count 212 Thou/mm3 (140-440); RDW Standard Deviation 42.3 fL (35.1-43.9); Red Blood Count 4.59 Miln/mm3 (4.50-5.90); White Blood Count 10.1 Thou/mm3 (3.8-10.6)
[2024-05-22 06:03] LABS: Prothrombin Time 10.9 Seconds (9.0-12.2)
[2024-05-22 06:19] LABS: Alanine Aminotransferase 52 U/L (10-49); Albumin, Serum 3.3 gm/dL (3.5-5.0); Albumin/Globulin Ratio 1.7 (1.2-2.2); Alkaline Phosphatase 89 U/L (46-116); Anion Gap 7 (7-16); Aspartate Amino Transferase < 10 U/L (0-34); BUN/Creatinine Ratio 19 Ratio (12-20); Bilirubin,Total 0.6 mg/dL (0.3-1.2); Blood Urea Nitrogen 17 mg/dL (9-23); Calcium 8.6 mg/dL (8.3-10.6); Calcium (Corrected) 9.2 mg/dL (8.5-10.1); Carbon Dioxide 29.3 mMol/L (20.0-31.0); Chloride 99 mMol/L (98-107); Creatinine (Component) 0.9 mg/dL (0.6-1.3); Estimated Creatinine Clearance 90.8 mL/min (>60); Glucose 231 mg/dL (74-106); Magnesium 1.6 mg/dL (1.6-2.6); Osmolality,Calculated 278 (275-295); Phosphorous 2.9 mg/dL (2.4-5.1); Potassium 3.7 mMol/L (3.4-5.1); Sodium 135 mMol/L (136-145); Total Protein 5.3 gm/dL (5.7-8.2); eGFR > 60 See Note
[2024-05-22] MEDS: INSULIN LISPRO (AdmeLOG) 1 UNIT/0.01 ML UNIT SC ×4 (07:35→20:06)
[2024-05-22] MEDS: FOLIC ACID INJ 1 MG/0.2 ML IVP (08:54)
[2024-05-22] MEDS: PANTOPRAZOLE INJ 40 MG VIAL IVP (08:54)
[2024-05-22] MEDS: THIAMINE INJ 100 MG/ML VIAL 2 ML IVP (08:55)
[2024-05-22] MEDS: ENOXAPARIN SOD INJ 40 MG/0.4 ML SYRINGE SC (08:55)
[2024-05-22] MEDS: ASPIRIN EC 81 MG TABEC PO (08:58)
--- NOTE | 2024-05-22 09:08 | PC.SS ---
Follow up note: Pt is an ICU down grade.
[2024-05-22] MEDS: INSULIN GLARGINE (Lantus) 5 UNIT/0.05 ML (PER 5 UNITS) 10 UNIT SC (09:56)
[2024-05-22] MEDS: ACETAMINOPHEN 325 MG TABLET 650 MG PO (09:57)
--- NOTE | 2024-05-22 10:23 | ESPR_ITS ---
<Statement entered by David Lew MD - 05/27/24 16:14> I reviewed above note and agree with findings and plans. I have also personally examined the patient with medicine team and went over assessment and plan with medical team including customer marketing intern and resident physician. Documentation for date of: 05/22/24 Subjective Subjective Interval history: Patient seen today at the bedside found awake, alert, oriented x3. No overnight events reported. States some whole body pain which improved after acetaminophen, no other complaints stated. Vital signs stable at this time. Labs unremarkable. Will continue with current antibiotic therapy with Zosyn for aspiration pneumonia. Exam Vital Signs Temp Pulse Resp BP Pulse Ox O2 Del Method O2 Flow Rate 92 F L 83 20 135/87 H 92 L Room Air 2 05/22/24 07:07 05/22/24 07:07 05/22/24 07:07 05/22/24 07:07 05/22/24 07:07 05/22/24 07:07 05/21/24 10:00 FiO2 102 05/22/24 06:48 Narrative Exam Physical Exam GENERAL: NAD, NC/AT, responsive/cooperative. A&Ox3 HEENT: Moist mucosa. Eyes open, symmetrical, & clear CARDIO: No chest pain on palpation. Heart RRR, no obvious murmurs PULM: No noted coughing/dyspnea. Lungs CTA B/L, no R/W/R GI: Abdomen soft, nondistended, no pain on palpation. BSx4 URO: No further abnormalities noted. SKIN/MSK/EXT: No wounds/rashes/edema/amputations, no pain on palpation. Pedal pulses present B/L NEURO: AAOx3, no focal neuro deficits Objective Labs 05/23/24 05:30 05/23/24 05:30 Labs: Laboratory Results - last 24 hr 05/21/24 05/21/24 05/21/24 09:35 11:56 14:15 WBC RBC Hgb Hct MCV MCH MCHC RDW Std Deviation Plt Count Neut % (Auto) Lymph % (Auto) [place] % (Auto) Eos % (Auto) Baso % (Auto) Neut # (Auto) Lymph # (Auto) [place] # (Auto) Eos # (Auto) Baso # (Auto) Immature Gran # (Auto) Absolute Nucleated RBC Immature Gran % Nucleated RBC % PT INR Sodium Potassium Chloride Carbon Dioxide Anion Gap BUN Creatinine Estim Creat Clear Calc eGFR BUN/Creatinine Ratio Glucose Calculated Osmolality Lactic Acid 4.0 H 4.1 H* 3.3 H Calcium Corrected Calcium Phosphorus Magnesium Total Bilirubin AST ALT Alkaline Phosphatase Total Protein Albumin Globulin Albumin/Globulin Ratio Ur Collection Type Urine Color Urine Clarity Urine pH Ur Specific [place] Urine Protein Urine Glucose (UA) Urine Ketones Urine Blood Urine Nitrite Urine Bilirubin Urine Urobilinogen (Auto) Ur Leukocyte Esterase Urine RBC Urine WBC Ur Squamous Epith Cells Urine Bacteria 05/21/24 05/21/24 05/21/24 15:25 16:37 17:10 WBC RBC Hgb Hct MCV MCH MCHC RDW Std Deviation Plt Count Neut % (Auto) Lymph % (Auto) [place] % (Auto) Eos % (Auto) Baso % (Auto) Neut # (Auto) Lymph # (Auto) [place] # (Auto) Eos # (Auto) Baso # (Auto) Immature Gran # (Auto) Absolute Nucleated RBC Immature Gran % Nucleated RBC % PT INR Sodium Potassium Chloride Carbon Dioxide Anion Gap BUN Creatinine Estim Creat Clear Calc eGFR BUN/Creatinine Ratio Glucose Calculated Osmolality Lactic Acid 3.7 H 2.0 Calcium Corrected Calcium Phosphorus Magnesium Total Bilirubin AST ALT Alkaline Phosphatase Total Protein Albumin Globulin Albumin/Globulin Ratio Ur Collection Type Catheter Urine Color Colorless A Urine Clarity Clear Urine pH 5.5 Ur Specific [place] 1.025 Urine Protein Negative Urine Glucose (UA) 4+ A Urine Ketones 2+ A Urine Blood 2+ A Urine Nitrite Negative Urine Bilirubin Negative Urine Urobilinogen (Auto) Negative Ur Leukocyte Esterase Negative Urine RBC 84 H Urine WBC 4 Ur Squamous Epith Cells < 1 Urine Bacteria None 05/21/24 05/22/24 20:41 04:07 WBC 10.1 RBC 4.59 Hgb 14.5 D Hct 41.2 MCV 90 MCH 31.6 MCHC 35.2 RDW Std Deviation 42.3 Plt Count 212 D Neut % (Auto) 62 Lymph % (Auto) 25 [place] % (Auto) 11 Eos % (Auto) 1 Baso % (Auto) 0 Neut # (Auto) 6.3 Lymph # (Auto) 2.5 [place] # (Auto) 1.1 H Eos # (Auto) 0.1 Baso # (Auto) 0.0 Immature Gran # (Auto) 0.04 H Absolute Nucleated RBC 0.00 Immature Gran % 0 Nucleated RBC % 0 PT 10.9 INR 1.0 Sodium 135 L Potassium 3.7 Chloride 99 Carbon Dioxide 29.3 Anion Gap 7 BUN 17 Creatinine 0.9 Estim Creat Clear Calc 90.8 eGFR > 60 BUN/Creatinine Ratio 19 Glucose 231 H D Calculated Osmolality 278 Lactic Acid 1.4 Calcium 8.6 Corrected Calcium 9.2 Phosphorus 2.9 Magnesium 1.6 Total Bilirubin 0.6 AST < 10 ALT 52 H Alkaline Phosphatase 89 Total Protein 5.3 L Albumin 3.3 L Globulin 2.0 L Albumin/Globulin Ratio 1.7 Ur Collection Type Urine Color Urine Clarity Urine pH Ur Specific [place] Urine Protein Urine Glucose (UA) Urine Ketones Urine Blood Urine Nitrite Urine Bilirubin Urine Urobilinogen (Auto) Ur Leukocyte Esterase Urine RBC Urine WBC Ur Squamous Epith Cells Urine Bacteria ABG Interpretation ABG results: 05/20/24 05/21/24 23:35 04:26 ABG pH 7.28 L 7.35 ABG pCO2 47 46 ABG pO2 405 H 166 H D ABG HCO3 22 25 ABG O2 Saturation 99 H 98 ABG Base Excess -5 L -1 Quality Measures Quality Measures none Assessment & Plan Assessment Current Active Medications: Generic Name Dose Route Start Last Admin Trade Name Freq PRN Reason Stop Dose Admin Acetaminophen 650 mg 05/22/24 08:55 Acetaminophen 325 Mg Tablet PO 06/21/24 08:54 Q6H PRN Fever >101.5 Acetaminophen 650 mg 05/22/24 08:55 05/22/24 09:57 Acetaminophen 325 Mg Tablet PO 06/21/24 08:54 650 mg Q6H PRN Administration PAIN SCALE 1-3 (mild Aspirin 81 mg 05/22/24 09:00 05/22/24 08:58 Aspirin Ec 81 Mg Tabec PO 06/21/24 08:59 81 mg QDAY SAVI Administration Atorvastatin Calcium 80 mg 05/21/24 21:00 05/21/24 20:24 Atorvastatin Calcium 20 Mg Tablet PO 06/20/24 20:59 80 mg HS SAVI Administration Chlordiazepoxide HCl 25 mg 05/21/24 12:00 05/22/24 05:15 Chlordiazepoxide Hcl 25 Mg Capsule PO 05/22/24 11:59 25 mg Q6HR SAVI Administration Enoxaparin Sodium 40 mg 05/22/24 09:00 05/22/24 08:55 Enoxaparin Sod Inj 40 Mg/0.4 Ml Syringe SC 06/05/24 08:59 40 mg QDAY SAVI Administration Folic Acid 1 mg 05/21/24 09:00 05/22/24 08:54 Folic Acid Inj 1 Mg/0.2 Ml IVP 05/24/24 08:59 1 mg QDAY SAVI Administration Glucagon 1 mg 05/21/24 01:26 Glucagon Inj 1 Mg Vial IM Q15MIN PRN BG <70, and no IV access Piperacillin/Tazobactam/Dextrose 3.375 gm in 50 mls @ 12.5 mls/hr 05/21/24 14:00 05/22/24 05:15 Zosyn IV 05/28/24 01:29 12.5 mls/hr Q8HR SAVI Administration Insulin Glargine 10 unit 05/22/24 09:00 05/22/24 09:56 Insulin Glargine (Lantus) 5 Unit/0.05 Ml (Per 5 Units) SC 06/21/24 08:59 10 unit QDAY SAVI Administration Insulin Human Lispro 0 unit 05/21/24 17:00 05/22/24 07:35 Insulin Lispro (Admelog) 1 Unit/0.01 Ml Unit SC 06/20/24 16:59 3 unit ACHS SAVI Administration Protocol Insulin Human Lispro 3 unit 05/22/24 11:30 Insulin Lispro (Admelog) 1 Unit/0.01 Ml Unit SC 06/21/24 11:29 [facility] Lorazepam 1 mg 05/21/24 10:00 05/21/24 14:47 Lorazepam 0.5 Mg Tablet PO 05/26/24 09:59 1 mg Q4HR PRN Administration CIWA SCORE 7-11 Lorazepam 1 mg 05/21/24 10:00 Lorazepam 2 Mg/Ml Vial IV 05/26/24 09:59 Q1HR PRN CIWA 16-19 Lorazepam 2 mg 05/21/24 10:00 Lorazepam 2 Mg/Ml Vial IVP 05/26/24 09:59 Q1HR PRN CIWA 20-25 Lorazepam 2 mg 05/21/24 10:00 Lorazepam 0.5 Mg Tablet PO 05/26/24 09:59 Q4HR PRN CIWA SCORE 12-15 Lorazepam 0.5 mg 05/21/24 10:00 05/21/24 17:48 Lorazepam 0.5 Mg Tablet PO 05/26/24 09:59 0.5 mg Q4HR PRN Administration CIWA Score 2-6 Lorazepam 2 mg 05/21/24 10:00 Lorazepam 2 Mg/Ml Vial IVP X1 PRN Breakthrough Agitation Ondansetron HCl 4 mg 05/21/24 01:17 Ondansetron Inj 2 Mg/Ml Inj 2 Ml IV 06/20/24 01:16 Q6HR PRN NAUSEA OR VOMITING Pantoprazole Sodium 40 mg 05/21/24 09:00 05/22/24 08:54 Pantoprazole Inj 40 Mg Vial IVP 06/20/24 08:59 40 mg QDAY SAVI Administration Thiamine HCl 100 mg 05/21/24 09:00 05/22/24 08:55 Thiamine Inj 100 Mg/Ml Vial 2 Ml IVP 05/24/24 08:59 100 mg QDAY SAVI Administration Plan 53 y/o M with PMHx of Diabetes, alcohol use disorder was brought to the hospital due to altered mental status after consuming 1 bottle of tequila and a lot of beers. Patient had GCS of 3 and was intubated and sedated for airway protection. After patient extubated and downgraded to the floors. #Aspiration pneumonia #Leukocytosis Secondary to acute encephalopathy in the setting of alcohol intoxication Leukocytosis 12.9, cervical spine CT was negative for fractures and showed a partially imaged right lung consolidation Chest x-ray showed Mild left upper lobe left perihilar opacity with possible aspiration pneumonia. Patient was intubated for airway protection Blood cultures negative in 24 hours - on IV zosyn o1chols - f/u sputum cx #Acute encephalopathy-resolved Secondary to alcohol intoxication Patient was brought to the ED by ambulance due to GCS of 3 after an episode of heavy alcohol drinking and intubated for airway protection. Ethyl Alcohol 461.9, U tox negative, CT head was negative for hemorrhage, mass or midline shift. CT cervical spine was negative for fractures ? PO thiamine 100 mg daily ? PO folic acid 1 mg daily #Alcohol use disorder patient drinks 3-4 big beers a day and a bottle of tequila CIWA at this time 0 - on CIWA protocol - prn ativan - PO folic acid - PO thiamine - counceled on alcohol cessation #Diabetes takes metformin at home on hold during hospital stay - insulin sliding scale - hypoglycemia protocol in place #Polycythemia-resolved secondary to dehydration Hemoglobin 17.6 after IVF administration current Hg 14.5 #Non-anion gap metabolic acidosis-resolved #Lactic acidosis-resolved Secondary to alcohol intoxication vs metformin induced? ABG showed non anion gap metabolic acidosis was given IV fluids and lactic acid normalized Case discussed with my senior Dr. Pruitt PGY-[address] Louann Wong MD PGY-1 Disposition:Medsurg Fluids: None Feeding: Carb consistent Thrombo prophylaxis: Lovenox Gastric Ulcer prophylaxis: Pantoprazole CODE STATUS: Full code Senior resident attestation: Patient evaluated and examined at the bedside, plan of care discussed with rest of the team including my attending physician, except as noted. #Alcohol use disorder: Apparently patient drinks 3-4 beers every day and consumes alcohol on a regular basis, and family has been trying to make him quit but unsuccessful. Came to ER after altered mental status following 1 bottle of tequila. On symptom triggered CIWA protocol. Patient counseled extensively regarding alcohol abstinence, offered resources to help with withdrawal symptoms. #Aspiration pneumonia: Continue antibiotics #Polycythemia likely secondary to dehydration, now resolved. #Lactic acidosis now resolved. #Altered mental status: Acute encephalopathy likely secondary to alcohol abuse, now resolved. Sonal PGY2
[2024-05-22] MEDS: INSULIN LISPRO (AdmeLOG) 1 UNIT/0.01 ML UNIT 3 UNIT SC ×2 (11:40→17:10)
[2024-05-22] MEDS: ATORVASTATIN CALCIUM 20 MG TABLET 80 MG PO (20:05)
[2024-05-23] VITALS: BP 135/82; PULSE 71; RESP 16; TEMP 36.4; O2SAT 98
[2024-05-23 04:00] VITALS: BP 106/74; PULSE 67; RESP 16; TEMP 36.3; O2SAT 97
[2024-05-23] MEDS: PIPER/TAZO 3.375 GM 3.375 GM/50 ML BAG IV (05:24)
[2024-05-23 05:55] LABS: Basophils # (Auto) 0.1 Thou/mm3 (0.0-0.2); Basophils % (Auto) 1 % (0-2.5); Eosinophils # (Auto) 0.3 Thou/mm3 (0.0-0.5); Eosinophils % (Auto) 4 % (0-10); Hematocrit 41.9 % (41.0-53.0); Hemoglobin 14.8 g/dL (13.5-16.0); Immature Granulocytes % (Auto) 0 % (0-0); Immature Granulocytes Auto 0.02 Thou/mm3 (0.00-0.00); Lymphocytes # (Auto) 2.6 Thou/mm3 (1.0-4.8); Lymphocytes % (Auto) 39 % (10-50); Mean Corpuscular HGB Conc 35.3 g/dl (31.0-37.0); Mean Corpuscular Hemoglobin 31.9 pg (25.0-35.0); Mean Corpuscular Volume 90 fL (80-100); Monocytes # (Auto) 0.8 Thou/mm3 (0.0-0.8); Monocytes % (Auto) 12 % (0-12); Neutrophils # (Auto) 3.1 Thou/mm3 (1.8-7.7); Neutrophils % (Auto) 45 % (37-80); Nucleated Red Blood Cell % 0 /100 WBC (0); Platelet Count 190 Thou/mm3 (140-440); RDW Standard Deviation 42.5 fL (35.1-43.9); Red Blood Count 4.64 Miln/mm3 (4.50-5.90); White Blood Count 6.8 Thou/mm3 (3.8-10.6)
[2024-05-23 06:37] LABS: Alanine Aminotransferase 53 U/L (10-49); Albumin, Serum 3.4 gm/dL (3.5-5.0); Albumin/Globulin Ratio 1.7 (1.2-2.2); Alkaline Phosphatase 82 U/L (46-116); Anion Gap 5 (7-16); Aspartate Amino Transferase 26 U/L (0-34); BUN/Creatinine Ratio 22 Ratio (12-20); Bilirubin,Total 0.4 mg/dL (0.3-1.2); Blood Urea Nitrogen 20 mg/dL (9-23); Calcium 8.9 mg/dL (8.3-10.6); Calcium (Corrected) 9.4 mg/dL (8.5-10.1); Carbon Dioxide 28.2 mMol/L (20.0-31.0); Chloride 102 mMol/L (98-107); Creatinine (Component) 0.9 mg/dL (0.6-1.3); Estimated Creatinine Clearance 90.8 mL/min (>60); Glucose 213 mg/dL (74-106); Magnesium 1.8 mg/dL (1.6-2.6); Osmolality,Calculated 278 (275-295); Potassium 4.2 mMol/L (3.4-5.1); Sodium 135 mMol/L (136-145); Total Protein 5.4 gm/dL (5.7-8.2); eGFR > 60 See Note
[2024-05-23 07:05] VITALS: PULSE 76; RESP 18; O2SAT 97
[2024-05-23 07:34] VITALS: BP 133/82; PULSE 65; RESP 22; TEMP 36.6; O2SAT 95
[2024-05-23] MEDS: ACETAMINOPHEN 325 MG TABLET 650 MG PO (07:42)
[2024-05-23] MEDS: INSULIN LISPRO (AdmeLOG) 1 UNIT/0.01 ML UNIT 3 UNIT SC (08:28)
[2024-05-23] MEDS: INSULIN GLARGINE (Lantus) 5 UNIT/0.05 ML (PER 5 UNITS) 10 UNIT SC (08:29)
[2024-05-23] MEDS: INSULIN LISPRO (AdmeLOG) 1 UNIT/0.01 ML UNIT SC ×2 (08:29→12:17)
[2024-05-23] MEDS: PANTOPRAZOLE 40 MG TABLET PO (08:30)
[2024-05-23] MEDS: FOLIC ACID 1 MG TABLET PO (08:30)
[2024-05-23] MEDS: THIAMINE 100 MG TABLET PO (08:30)
[2024-05-23] MEDS: ASPIRIN EC 81 MG TABEC PO (08:30)
[2024-05-23] MEDS: ENOXAPARIN SOD INJ 40 MG/0.4 ML SYRINGE SC (08:34)
--- NOTE | 2024-05-23 11:30 | PC.SS ---
Initial assessment: This is 53 year old male admitted for alcohol intoxication. Patient appeared alert and oriented. Patient informs he lives at home with spouse Letty. Patient confirmed demographic information. Patient's , Letty was identified as the patient's alternate medical surrogate decision maker. Patient describes to be independent with ADL's. Patient denies use of DME at home. Patient's PCP is Dr. Vikas Wong. Pharmacy of choice is [facility] in [place]. The discharge plan was discussed, and the patient would like to return home once medically cleared. Patient's family to assist with transportation home. Community resources provided to the patient due to substance use. D/c plan: home Next of kin: spouse, Letty
--- NOTE | 2024-05-23 11:33 | PC.NURSE ---
Pt has dc orders, states will have transportation around 1pm
[2024-05-23 12:00] VITALS: BP 127/88; PULSE 67; RESP 17; TEMP 36.2; O2SAT 97
[2024-05-23] MEDS: INSULIN LISPRO (AdmeLOG) 1 UNIT/0.01 ML UNIT 5 UNIT SC (12:16)
--- NOTE | 2024-05-23 13:37 | ESDS_ITS ---
<Statement entered by David Lew MD - 05/27/24 16:15> I reviewed above note and agree with findings and plans. I have also personally examined the patient with medicine team and went over assessment and plan with medical team including international representative and resident physician. Planned Discharge Date 05/23/24 DS: Providers Provider Date of admission: 05/21/24 00:55 Primary care physician: Vikas Wong MD Admitting Provider: Josh Dial MD Attending Provider on Admission: David Lew MD Attending Provider on DC: Ismael Wong MD Discharging Provider: Ismael Wong MD DS: Diagnosis Problem List Completed Was Problem List Reviewed/Reconciled?: Yes Hospital Course Hospital Course Hospital course: 53 y/o M with PMHx of type II diabetes mellitus and alcohol use disorder who came to the ED brought by ambulance due to altered mental status. Patient apperantly drank tequila for first time and became altered and passed out. Patient had GCS of 3 and was intubated and placed on mechanical ventilation due to concern for airway protection. Patient was weaned off sedation and was able to follow commands and successfully extubated. Patient was downgraded to the floors. While on the floors patient was managed with antibiotics for treatment of aspiration pneumonia. Diabetes was managed with sliding scale insulin, and insulin regimen was adjusted for discharge. Patient at this time is medically stable for discharge. Patient adviced to continue antibiotics for 3 more days. Follow up with Primary care physician with labs within 3-5 days of discharge. If symptoms persist or worsen, return to the Emergency Department. Problem List: #Aspiration pneumonia #Leukocytosis #Acute encephalopathy-resolved #Alcohol use disorder #Diabetes #Polycythemia-resolved #Non-anion gap metabolic acidosis-resolved #Lactic acidosis-resolved Case discussed with my senior Dr. Pruitt PGY-[address] Louann Wong MD PGY-1 Senior resident attestation: Patient evaluated and examined at the bedside, plan of care discussed with rest of the team including my attending physician, except as noted. Continue antibiotics for 3 more days . Follow up with Primary care physician with labs within 3-5 days of discharge. If symptoms persist or worsen, return to the Emergency Department. Sonal PGY2 Time Spent with Patient Time attestation: Total time spent providing and/or coordinating discharge services: 30 min Exam Vital Signs Temp Pulse Resp BP Pulse Ox O2 Del Method O2 Flow Rate 97.2 F 67 17 127/88 H 97 Nasal Cannula 1 05/23/24 12:00 05/23/24 12:00 05/23/24 12:00 05/23/24 12:00 05/23/24 12:00 05/23/24 12:00 05/23/24 12:00 FiO2 102 05/22/24 06:48 Narrative Exam Physical Exam GENERAL: NAD, NC/AT, responsive/cooperative. A&Ox3 HEENT: Moist mucosa. Eyes open, symmetrical, & clear CARDIO: No chest pain on palpation. Heart RRR, no obvious murmurs PULM: No noted coughing/dyspnea. Lungs CTA B/L, no R/W/R GI: Abdomen soft, nondistended, no pain on palpation. BSx4 URO: No further abnormalities noted. SKIN/MSK/EXT: No wounds/rashes/edema/amputations, no pain on palpation. Pedal pulses present B/L NEURO: AAOx3, no focal neuro deficits Discharge Plan Plan Patient Disposition: HOME (Self Care) Patient condition on transfer: Stable Care Plan Goals: Continue antibiotics for 3 more days . Follow up with Primary care physician with labs within 3-5 days of discharge. If symptoms persist or worsen, return to the Emergency Department. Prescriptions/Referrals Prescriptions/Med Rec: New thiamine mononitrate (vit B1) 100 mg Tablet 100 mg PO BID 30 Days Qty: 60 0RF aspirin 81 mg Tablet,Delayed Release (Dr/Ec) 81 mg PO QDAY 30 Days Qty: 30 0RF atorvastatin 40 mg tablet 40 mg PO HS 30 Days Qty: 30 0RF insulin glargine [Lantus U-100 Insulin] 100 unit/mL Solution 20 unit SCi QDAY Qty: 10 0RF folic acid 1 mg Tablet 1 mg PO BID 30 Days Qty: 60 0RF (DME) pen needle, diabetic 29 gauge x 1/2 needle See Rx Instructions .Route Qty: 100 0RF Rx Instructions: As directed (DME) blood-glucose meter [Blood Glucose Monitoring] Kit See Rx Instructions .Route Qty: 1 0RF Rx Instructions: As directed (DME) Blood Glucose Test Strip See Rx Instructions .Route Qty: 50 0RF Rx Instructions: As directed (DME) lancets [Fingerstix Lancets] Misc See Rx Instructions .Route Qty: 100 0RF Rx Instructions: As directed amoxicillin 500 mg tablet 500 mg PO TID 3 Days Qty: 9 0RF Continued metformin 500 mg tablet 500 mg PO BID Qty: 60 0RF Referrals: Vikas Wong MD [Primary Care Provider] - Patient/Caregiver Discharge Instructions Education Materials: High Blood Sugar (Hyperglycemia), Glucose Check Steps, ED Alcohol Intoxication Print Language: American Activity Restrictions/Additional Instructions: Continue antibiotics for 3 more days . continue con antibioticos por 3 vallecillo mas Follow up with Primary care physician with labs within 3-5 days of discharge. khushi gisselle con severino doctor primario despues de analysis de robin 3-5 vallecillo despues dado de magda If symptoms persist or worsen, return to the Emergency Department. si simptomas continuan o empioran regrese a la malgorzata de emergencia Stand Alone Forms: [facility] Award Info., Patient Portal Info Letter Discharge Order Discharge Orders: Discharge (Routine); Ordered 05/23/24 Ordered By: Ismael Wong Quality Discharge Quality Measures VTE prophylaxis
== END 2024-05-23 13:36 | disposition home or self-care (01) | DRG 775 ==
LOC: SERX 05-21 02:01 → SERHOLD 05-21 02:06 → S2SX 05-21 04:12 → S3NX 05-21 13:57
PROVIDERS: Internal Medicine; Student in an Organized Health Care Education/Training Program; Admitting Provider Internal Medicine; Emergency Provider Emergency Medicine; PCP Family Medicine; Visit Provider Internal Medicine
DX: F10.129 Alcohol abuse with intoxication, unspecified (principal); Y90.8 Blood alcohol level of 240 mg/100 ml or more; J69.0 Pneumonitis due to inhalation of food and vomit; E11.65 Type 2 diabetes mellitus with hyperglycemia; G31.2 Degeneration of nervous system due to alcohol; E87.20 Acidosis, unspecified; D75.1 Secondary polycythemia; E86.0 Dehydration; J96.01 Acute respiratory failure with hypoxia; Z79.84 Long term (current) use of oral hypoglycemic drugs; Z79.4 Long term (current) use of insulin; Z79.82 Long term (current) use of aspirin; Z79.899 Other long term (current) drug therapy
CPT/HCPCS: 36415; 36600; 70450; 70551; 71045; 72125; 80053; 80307; 80320; 81001; 82010; 82803; 83036; 83605; 83735; 84100; 84145; 85025; 85610; 87040; 87081; 87205; 87811; 93005; 94002; 94003; 96361; 96365; 96375; 99291; J0330; J1650; J1815; J1953; J2310; J2470; J2543; J2704; J3010; J3411; J3490; J7050; J7120; A9270; G0480

== ENCOUNTER 2024-05-24 17:20 | Emergency (ER) | payer MEDICAID, SELFPAY ==
--- NOTE | 2024-05-24 17:41 | PD.EDRME ---
Rapid Medical Screening Exam RME Arrival date/time: 05/24/24 17:20 Chief Complaint: General Adult/Misc Complain Time Seen by Provider: 05/24/24 17:34 Vital signs: Vital Signs Temperature 98.9 F 05/24/24 17:46 Pulse Rate 61 05/24/24 17:46 Respiratory Rate 18 05/24/24 17:46 Blood Pressure 136/87 H 05/24/24 17:46 Pulse Oximetry (%) 95 05/24/24 17:46 Oxygen Delivery Method Room Air 05/24/24 17:46 RME Narrative: Reports postprandial glucose of 501 today. c/o dizziness. Patient takes metformin, started on Lantus 2 days ago.
[2024-05-24 17:46] VITALS: BP 136/87; PULSE 61; RESP 18; TEMP 37.2; O2SAT 95; BMI 28.3
[2024-05-24 18:10] LABS: Base Excess, Venous 1 (-3-3); O2 Saturation, Venous 88 % (96-97); PCO2, Venous 32 mmHg (36-56); PO2, Venous 52 mmHg (15-58); pH, Venous 7.47 (7.33-7.66)
[2024-05-24 18:21] LABS: Beta Hydroxybutyrate 0.1 mmol/L (<0.6)
[2024-05-24 18:23] LABS: Glucose Estimated Average 352 mg/dL (80-131); Hemoglobin A1C 13.9 % Hgb (4.8-6.0)
[2024-05-24 18:24] LABS: Basophils # (Auto) 0.1 Thou/mm3 (0.0-0.2); Basophils % (Auto) 1 % (0-2.5); Eosinophils # (Auto) 0.2 Thou/mm3 (0.0-0.5); Eosinophils % (Auto) 3 % (0-10); Hematocrit 44.8 % (41.0-53.0); Hemoglobin 15.7 g/dL (13.5-16.0); Immature Granulocytes % (Auto) 0 % (0-0); Immature Granulocytes Auto 0.02 Thou/mm3 (0.00-0.00); Lymphocytes # (Auto) 2.4 Thou/mm3 (1.0-4.8); Lymphocytes % (Auto) 37 % (10-50); Mean Corpuscular Hemoglobin 31.7 pg (25.0-35.0); Mean Corpuscular Volume 91 fL (80-100); Monocytes # (Auto) 0.5 Thou/mm3 (0.0-0.8); Monocytes % (Auto) 7 % (0-12); Neutrophils # (Auto) 3.3 Thou/mm3 (1.8-7.7); Neutrophils % (Auto) 51 % (37-80); Nucleated Red Blood Cell % 0 /100 WBC (0); Platelet Count 237 Thou/mm3 (140-440); RDW Standard Deviation 41.4 fL (35.1-43.9); Red Blood Count 4.95 Miln/mm3 (4.50-5.90); White Blood Count 6.5 Thou/mm3 (3.8-10.6)
[2024-05-24 19:37] LABS: Alanine Aminotransferase 197 U/L (10-49); Albumin, Serum 3.8 gm/dL (3.5-5.0); Albumin/Globulin Ratio 1.6 (1.2-2.2); Alkaline Phosphatase 128 U/L (46-116); Anion Gap 6 (7-16); Aspartate Amino Transferase 126 U/L (0-34); BUN/Creatinine Ratio 17 Ratio (12-20); Bilirubin,Total 0.2 mg/dL (0.3-1.2); Blood Urea Nitrogen 20 mg/dL (9-23); Calcium 9.2 mg/dL (8.3-10.6); Calcium (Corrected) 9.4 mg/dL (8.5-10.1); Carbon Dioxide 26.1 mMol/L (20.0-31.0); Chloride 100 mMol/L (98-107); Creatinine (Component) 1.2 mg/dL (0.6-1.3); Estimated Creatinine Clearance 68.2 mL/min (>60); Globulin 2.4 gm/dL (2.3-3.5); Osmolality,Calculated 289 (275-295); Potassium 4.6 mMol/L (3.4-5.1); Sodium 132 mMol/L (136-145); Total Protein 6.2 gm/dL (5.7-8.2); Troponin I < 0.002 ng/mL (0.0-0.045); eGFR > 60 See Note
[2024-05-24 19:40] LABS: Glucose 502 mg/dL (74-106)
[2024-05-24 20:06] LABS: Collection Type, Urine Clean Catch
[2024-05-24 20:13] VITALS: BP 154/88; PULSE 60; RESP 18; TEMP 36.9; O2SAT 93
[2024-05-24 20:26] VITALS: BP 154/88; PULSE 62; PULSE 64; RESP 24; O2SAT 94
[2024-05-24 20:28] LABS: Bilirubin,Urine Negative (Negative); Blood,Urine Trace (Negative); Clarity,Urine Clear (Clear/Hazy); Color,Urine Colorless (Lt Yel-Yel); Glucose, Urine 4+ (Negative); Ketones,Urine Negative (Negative); Leukocyte Esterase,Urine Negative (Negative); Nitrite,Urine Negative (Negative); Protein,Urine Negative (Neg - Trace); RBC,Urine 3 /hpf (0-3); Specific Gravity,Urine 1.026 (1.001-1.035); Squamous Epithelial Cell,Urine < 1 /hpf (0-5); Urobilinogen,Urine Negative mg/dL (0.0-1.0); WBC,Urine 1 /hpf (0-5)
--- NOTE | 2024-05-24 20:28 | PD.EDADULT ---
ED General RME/HPI General Chief complaint: General Adult/Misc Complain Stated complaint: hyperglycemia Time Seen by Provider: 05/24/24 17:34 Arrival date/time: 05/24/24 17:20 RME / HPI RME / HPI narrative: Reports postprandial glucose of 501 today. c/o dizziness. Patient takes metformin, started on Lantus [address] ROMO MAIN ED EVALUATION: 53-year-old male patient with a history of diabetes complaining of elevated blood glucose at home. Recently started Lantus. Complains of mild nonproductive cough, no fever, no shortness of breath. Related Data Previous Rx's ?Medication ?Instructions ?Recorded metformin 500 mg tablet 500 mg PO BID #60 tabs 07/19/23 amoxicillin 500 mg tablet 500 mg PO TID 3 days #9 tabs 05/23/24 aspirin 81 mg tablet,delayed 81 mg PO QDAY 30 days #30 tabs 05/23/24 release atorvastatin 40 mg tablet 40 mg PO HS 30 days #30 tabs 05/23/24 blood sugar diagnostic (Blood #50 ea 05/23/24 Glucose Test strips) blood-glucose meter (Blood Glucose #1 ea 05/23/24 Monitoring kit) folic acid 1 mg tablet 1 mg PO BID 30 days #60 tabs 05/23/24 insulin glargine 100 unit/mL 20 unit (0.2 mL) SCi QDAY #10 mL 05/23/24 subcutaneous solution (Lantus U-100 Insulin) lancets (Fingerstix Lancets) #100 ea 05/23/24 pen needle, diabetic 29 gauge x #100 ea 05/23/24 1/2 thiamine mononitrate (vit B1) 100 100 mg PO BID 30 days #60 tabs 05/23/24 mg tablet Allergies Allergy/AdvReac Type Severity Reaction Status Date / Time No Known Allergies Allergy Verified 05/24/24 17:21 Review of Systems Review of Systems Systems Reviewed: All systems reviewed, normal except as documented Narrative Review of Systems: GEN: No fever, no chills, no weight loss EYES: No discharge, no visual changes, no pain HEENT: No ear pain, no congestion, no sore throat PULM: No shortness of breath, + mild nonproductive cough, no congestion CV: No chest pain, no dyspnea on exertion, no palpitations GI: No nausea, no vomiting, no diarrhea, no pain, no constipation : No frequency, no urgency and no dysuria MUSC/SKEL: No joint pain, no back pain SKIN: No rash PSYCH: No hallucinations, no depression HEME/LYMPH: No easy bleeding or bruising tendencies NEURO: No weakness, no headache Past Medical History Past Medical History CARDIAC: Positive Hypercholesterolemia ENDOCRINE: Positive Diabetes Mellitus Type 2 Social History SMOKING STATUS: Never smoker SUBSTANCE USE: does not use ALCOHOL: Current ALCOHOL LAST INTAKE: Days (ago) (2) ED Exam Narrative Physical exam: GENERAL APPEARANCE: alert and oriented x 4, well-developed, well-nourished, no acute distress VITALS: All vitals were reviewed and the pulse ox is 94% on room air, which is normal according to my interpretation. HEENT: Normocephalic, atraumatic; pupils equal, round, reactive to light; EOMI; mucous membranes pink, moist; oropharynx clear NECK: Supple LUNGS: CTABL; no wheezes, no rales, no rhonchi HEART: Regular rate, regular rhythm; normal S1, S2; no murmurs ABDOMEN: non distended; normal BS; soft, no tenderness, no guarding, no rebound; no masses, no organomegaly, no hernia BACK: no CVA tenderness EXTREMITIES: atraumatic; no edema NEUROLOGIC: awake; alert and oriented x4; cranial nerves II-XII grossly intact; no focal sensory or motor deficits PSYCHIATRIC: appropriate mood and affect SKIN: warm, dry, normal color; no rashes Course Quality Measures none Orders Category Date Time Status Bedside Blood Glucose Q1HR Care 05/24/24 20:32 Active EKG (ED ONLY) *Do not use* NOW Care 05/24/24 17:40 Completed EKG (ED Only) Stat Exams 05/24/24 17:40 Ordered Beta Hydroxybutyrate Stat Lab 05/24/24 17:55 Completed CBC Stat Lab 05/24/24 17:55 Completed CMP [Comprehensive Metabolic Panel] Stat Lab 05/24/24 17:55 Completed Hemoglobin A1C [Glycohemoglobin w (eAG)] Stat Lab 05/24/24 17:55 Completed Lipase Stat Lab 05/24/24 17:55 Completed Troponin I Stat Lab 05/24/24 17:55 Completed UA [Urinalysis] Stat Lab 05/24/24 19:12 Completed VBG [Venous Blood Gas] Stat Lab 05/24/24 17:55 Completed Insulin Regular Med 05/24/24 20:32 Discontinued 10 unit IV X1 ONE Sodium Chloride 0.9% 1000 ml [Ns] 1,000 ml Med 05/24/24 20:31 Discontinued IV 999 mls/hr Vital Signs Vital signs: Vital Signs Temperature 98.9 F 05/24/24 17:46 Pulse Rate 61 05/24/24 17:46 Respiratory Rate 18 05/24/24 17:46 Blood Pressure 136/87 H 05/24/24 17:46 Pulse Oximetry (%) 95 05/24/24 17:46 Oxygen Delivery Method Room Air 05/24/24 17:46 MDM Patient data External records reviewed:: [facility] previous records (Reviewed last admission record from 05/20/24 through 05/23/24, patient admitted for the following: Altered mental status, Alcoholic intoxication, Acute hyperglycemia, Sepsis, Aspiration pneumonia.) Clinical information provided by:: patient Social determinants that could affect healthcare access:: alcohol use Patient has the following chronic illnesses:: diabetes How is presenting disease/condition affected by chronic disease/condition?: exacerbated by Evaluation data The following diagnostics were reviewed and interpreted by me:: lab results and EKG tracing(s) (sinus rhythm, rate 87, no STEMI) Lab and/or radiology exams considered but not ordered:: none Interpretation Summary: Hyperglycemia, glucose 502. Medications Medications considered but not ordered:: none Medication administrations:: Medication Administration History Discontinued Medications Sodium Chloride (Ns) 1,000 mls @ 999 mls/hr IV .Q1H1M ONE Stop: 05/24/24 21:31 Last Admin: 05/24/24 20:54 Dose: 999 mls/hr Documented By: ALEX Insulin Human Regular (Insulin Hum Regular 1 Unit/0.01 Ml (Per Unit)) 10 unit IV X1 ONE Stop: 05/24/24 20:33 Last Admin: 05/24/24 20:47 Dose: 10 unit Documented By: ALEX Co-signed By: CVL see above Consultations Consultation(s) initiated? (list below): No Diagnosis Differential Diagnosis ED Complaint MDM: DKA, hyperglycemia, dehydration Most likely diagnosis given after review of the tests above:: Hyperglycemia Diabetes Admission Indicated Admission indicated?: not indicated Explain why admission is indicated or not indicated:: Patient has no emergent abnormalities on his studies and can be managed on an outpatient basis. Admission Request Was there a request for admission?: No Disposition Plan Disposition Plan: Discharge Discharge Attestation Discharge Attestation: The patient and all family members were given an opportunity to ask questions and understood the discharge instructions. Discharge instructions specifically effects, indications for sooner follow up or return to the emergency department, and the expected course of current diagnosis. Patient condition: Stable Medical Decision Making MDM Narrative MDM Narrative: IAnnmarie am scribing for and in the presence of Dr. Romo. Differential Diagnosis Differential Diagnosis: DKA, hyperglycemia, dehydration Lab Data 05/24/24 17:55 05/24/24 17:55 Labs: Lab Results 05/24/24 05/24/24 Range/Units 17:55 19:12 WBC 6.5 (3.8-10.6) Thou/mm3 RBC 4.95 (4.50-5.90) Miln/mm3 Hgb 15.7 (13.5-16.0) g/dL Hct 44.8 (41.0-53.0) % MCV 91 (80-100) fL MCH 31.7 (25.0-35.0) pg MCHC 35.0 (31.0-37.0) g/dl RDW Std Deviation 41.4 (35.1-43.9) fL Plt Count 237 D (140-440) Thou/mm3 Neut % (Auto) 51 (37-80) % Lymph % (Auto) 37 (10-50) % [place] % (Auto) 7 (0-12) % Eos % (Auto) 3 (0-10) % Baso % (Auto) 1 (0-2.5) % Neut # (Auto) 3.3 (1.8-7.7) Thou/mm3 Lymph # (Auto) 2.4 (1.0-4.8) Thou/mm3 [place] # (Auto) 0.5 (0.0-0.8) Thou/mm3 Eos # (Auto) 0.2 (0.0-0.5) Thou/mm3 Baso # (Auto) 0.1 (0.0-0.2) Thou/mm3 Immature Gran # (Auto) 0.02 H (0.00-0.00) Thou/mm3 Absolute Nucleated RBC 0.00 (0.00-0.00) Thou/mm3 Immature Gran % 0 (0-0) % Nucleated RBC % 0 (0) /100 WBC VBG pH 7.47 (7.33-7.66) VBG pCO2 32 L (36-56) mmHg VBG pO2 52 (15-58) mmHg VBG O2 Sat ([place]) 88 L (96-97) % VBG Base Excess 1 (-3-3) Sodium 132 L (136-145) mMol/L Potassium 4.6 (3.4-5.1) mMol/L Chloride 100 (98-107) mMol/L Carbon Dioxide 26.1 (20.0-31.0) mMol/L Anion Gap 6 L (7-16) BUN 20 (9-23) mg/dL Creatinine 1.2 (0.6-1.3) mg/dL Estim Creat Clear Calc 68.2 (>60) mL/min eGFR > 60 (60 - ) See Note BUN/Creatinine Ratio 17 (12-20) Ratio Glucose 502 H* D (74-106) mg/dL Estimated Ave Glu mg/dL 352 H (80-131) mg/dL Hemoglobin A1c 13.9 H (4.8-6.0) % Hgb Calculated Osmolality 289 (275-295) Calcium 9.2 (8.3-10.6) mg/dL Corrected Calcium 9.4 (8.5-10.1) mg/dL Total Bilirubin 0.2 L (0.3-1.2) mg/dL AST 126 H (0-34) U/L ALT 197 H (10-49) U/L Alkaline Phosphatase 128 H D (46-116) U/L Troponin I < 0.002 (0.0-0.045) ng/mL Total Protein 6.2 (5.7-8.2) gm/dL Albumin 3.8 (3.5-5.0) gm/dL Globulin 2.4 (2.3-3.5) gm/dL Albumin/Globulin Ratio 1.6 (1.2-2.2) Lipase 35 (12-53) U/L Beta-Hydroxybutyrate/Acetoacetate 0.1 (<0.6) mmol/L Ur Collection Type Clean Catch Urine Color Colorless A (Lt Yel-Yel) Urine Clarity Clear (Clear/Hazy) Urine pH 6.0 (5.0-7.0) Ur Specific [place] 1.026 (1.001-1.035) Urine Protein Negative (Neg - Trace) Urine Glucose (UA) 4+ A (Negative) Urine Ketones Negative (Negative) Urine Blood Trace (Negative) Urine Nitrite Negative (Negative) Urine Bilirubin Negative (Negative) Urine Urobilinogen (Auto) Negative (0.0-1.0) mg/dL Ur Leukocyte Esterase Negative (Negative) Urine RBC 3 (0-3) /hpf Urine WBC 1 (0-5) /hpf Ur Squamous Epith Cells < 1 (0-5) /hpf Urine Bacteria None (None) Discharge Plan Plan Patient Disposition: HOME (Self Care) Prescriptions/Referrals Prescriptions/Med Rec: No Action thiamine mononitrate (vit B1) 100 mg Tablet 100 mg PO BID 30 Days Qty: 60 0RF aspirin 81 mg Tablet,Delayed Release (Dr/Ec) 81 mg PO QDAY 30 Days Qty: 30 0RF atorvastatin 40 mg tablet 40 mg PO HS 30 Days Qty: 30 0RF insulin glargine [Lantus U-100 Insulin] 100 unit/mL Solution 20 unit SCi QDAY Qty: 10 0RF folic acid 1 mg Tablet 1 mg PO BID 30 Days Qty: 60 0RF (DME) pen needle, diabetic 29 gauge x 1/2 needle See Rx Instructions .Route Qty: 100 0RF Rx Instructions: As directed (DME) blood-glucose meter [Blood Glucose Monitoring] Kit See Rx Instructions .Route Qty: 1 0RF Rx Instructions: As directed (DME) Blood Glucose Test Strip See Rx Instructions .Route Qty: 50 0RF Rx Instructions: As directed (DME) lancets [Fingerstix Lancets] Misc See Rx Instructions .Route Qty: 100 0RF Rx Instructions: As directed amoxicillin 500 mg tablet 500 mg PO TID 3 Days Qty: 9 0RF metformin 500 mg tablet 500 mg PO BID Qty: 60 0RF Referrals: Isha Gavin FNP [Primary Care Provider] - In 1 week Problem List Clinical Impression: Hyperglycemia, Diabetes Patient/Caregiver Discharge Instructions Education Materials: ED Diabetes with High Blood Sugar Print Language: Upper Sorbian Stand Alone Forms: [facility] Award Info., Patient Portal Info Letter
[2024-05-24] MEDS: INSULIN HUM REGULAR 1 UNIT/0.01 ML (PER UNIT) 10 UNIT IV (20:47)
[2024-05-24] MEDS: SODIUM CHLORIDE 0.9% 1000 ML 1,000 ML 999 ML IV (20:54)
[2024-05-24 22:23] LABS: Lipase 35 U/L (12-53)
--- NOTE | 2024-05-24 22:50 | PC.NURSE ---
Pt given instructions to resume his long acting insulin tonight as prescribED.Pt has apointment with PCP on monday. pt instructed to check and record his blood sugar several times each day until his appointment monday.
[2024-05-24 22:51] VITALS: BP 144/89; PULSE 58; PULSE 59; RESP 18; TEMP 36.7
[2024-05-24 22:55] VITALS: TEMP 36.7
== END 2024-05-24 23:02 | disposition home or self-care (01) ==
PROVIDERS: Physician Assistant; Emergency Provider Emergency Medicine; PCP Nurse Practitioner Family
DX: E11.65 Type 2 diabetes mellitus with hyperglycemia (principal); E78.00 Pure hypercholesterolemia, unspecified; Z79.4 Long term (current) use of insulin; Z79.84 Long term (current) use of oral hypoglycemic drugs
CPT/HCPCS: 36415; 80053; 81001; 82010; 82803; 83036; 83690; 84484; 85025; 93005; 99284; J1815; J7030